=== PATIENT | female | born 1945 | race Caucasian/White ===

== ENCOUNTER 2018-03-10 09:36 | Outpatient (CLI) | payer MEDICARE | END 2018-03-10 09:37 | disposition home or self-care (01) | LOC: BICMAMMO 09:36 | PROVIDERS: ATTEND Specialist | DX: Z13.820 Encounter for screening for osteoporosis (principal); C50.412 Malignant neoplasm of upper-outer quadrant of left female breast; Z78.0 Asymptomatic menopausal state; Z80.3 Family history of malignant neoplasm of breast; Z85.3 Personal history of malignant neoplasm of breast | CPT/HCPCS: 77066; 77080; G0279 ==

== ENCOUNTER 2018-03-18 01:37 | Inpatient (IN) | payer MEDICARE ==
[2018-03-18] MEDS ORDERED: Ondansetron HCl/PF 4 MG/2 ML Vial ONE (02:23)
[2018-03-18 02:29] LABS: Hemoglobin 13.4 g/dL (12.0-16.0); Mean Corpuscular HGB CONC 35.7 g/dL (32.0-36.0); Mean Corpuscular Hemoglobin 36.1 pg (27.0-31.0); Platelet Count 236 thou/uL (130-400); RBC Distribution Width 12.7 % (11.5-14.5); Red Blood Cell (RBC) Count 3.72 mill/uL (4.20-5.40); White Blood Cell (WBC) Count 9.3 thou/uL (4.8-10.8)
[2018-03-18 03:01] LABS: ALT (SGPT) 13 U/L (8-55); AST (SGOT) 21 U/L (5-34); Albumin 3.9 g/dL (3.4-4.8); Alkaline Phosphatase 71 U/L (40-150); Anion Gap 16 mmol/L (10-20); BUN (Urea Nitrogen) 17 mg/dL (9.8-20.1); Bilirubin, Total 0.4 mg/dL (0.2-1.2); Calc. Creatinine Clearance 0 mL/min (70-130); Calcium 10.3 mg/dL (7.8-10.44); Carbon Dioxide 26 mmol/L (23-31); Chloride 102 mmol/L (98-107); Estimated GFR-MDRD 54; Globulin 3.1 g/dL (2.4-3.5); Glucose 133 mg/dL (83-110); Lipase 4 U/L (8-78); Potassium 4.3 mmol/L (3.5-5.1); Sodium 140 mmol/L (136-145)
[2018-03-18 03:07] LABS: Band 1 % (5-11); Lymphocytes 4 % (21-51); MDiff Complete? YES; Monocytes 9 % (0-10); Neutrophil 86 % (42-75); PLT Morphology Comment Appears Adequate; RBC Morphology Normal
[2018-03-18 04:17] LABS: Bilirubin Negative (Negative); Blood, Urine Negative (Negative); Clarity CLEAR (Clear); Glucose, Urine (Dipstick) Negative (Negative); Leukocyte Negative (Negative); Nitrite Negative (Negative); Protein, Urine (Dipstick) Negative (Neg-Trace); Specific Gravity, Urine 1.021 (1.002-1.036); Urobilinogen 0.2 mg/dL (0.2-1.0)
[2018-03-18] MEDS ORDERED: Pantoprazole 40 MG VIAL ONE (04:51)
[2018-03-18] MEDS ORDERED: Morphine 4 MG/ML VIAL ONE (05:19)
[2018-03-18 06:31] VITALS: BMI 32.9
[2018-03-18] MEDS ORDERED: Ondansetron HCl/PF 4 MG/2 ML Vial IVP PRN (06:39)
[2018-03-18] MEDS ORDERED: Ondansetron ODT 4 MG TAB PO PRN (06:39)
--- NOTE | 2018-03-18 07:53 | RAD ---
SINGLE VIEW OF THE LOWER CHEST: HISTORY: NG tube placement. FINDINGS: A single view of the lower chest shows an enlarged cardiomediastinal silhouette. There is an NG tube with its tip in the stomach. There is a nonobstructed bowel gas pattern. No obvious consolidation or pleural effusion are seen. IMPRESSION: Nasogastric tube located in the stomach. POS: CET
--- NOTE | 2018-03-18 08:03 | CT ---
PRELIMINARY REPORT/[facility]/EMERGENTY AFTER-HOURS PROCEDURE CT Abdomen and Pelvis With Intravenous Contrast EXAM DATE/TIME: Exam ordered 03/18/2018 3:41 AM CLINICAL HISTORY: 72 years old, female; Pain; Abdominal pain; Localized; Left; Prior surgery; Patient HX: Er 12; 72 yea r old patient here with concern for sbo. Pt reports eating carrots last night and starting to feel bl oated. Ate oatmeal for breakfast and started feeling backed up. Took mag citrate. Ended up vomiting x 1. Vomitus bilious. Pt reports having luq/llq abdominal pain. Pt had total colectomy in past due to u c. Has j pouch. Pt had sbo in past reports after eating carrots as well. TECHNIQUE: Axial computed tomography images of the abdomen and pelvis with intravenous contrast. Coronal reformatted images were created and reviewed. COMPARISON: No relevant prior studies available. FINDINGS: Lung bases: There is subpleural atelectasis of the dependent portions of the lungs. ABDOMEN: Liver: There are no focal liver lesions identified. Gallbladder and bile ducts: There has been a cholecystectomy. No ductal dilation. Pancreas: The pancreas appears normal. No ductal dilation. Spleen: The spleen is normal. Adrenals: The right adrenal gland is normal.There is a focal hypodense mass in the left adrenal gland , consistent in appearance and density with a benign adrenal adenoma. Kidneys and ureters: Normal. No solid mass. No hydronephrosis. Stomach and bowel: There is dilatation of the small bowel up to 3.4 cm with abrupt collapse in the pe lvis consistent with small bowel obstruction. Stomach is mildly distended. There are surgical clips i n the pelvis compatible with total colectomy. There are fecal contents within the distal small bowel from delayed transit. PELVIS: Appendix: See above. Bladder: Normal. No mass. Reproductive: The uterus is surgically absent. ABDOMEN and PELVIS: Intraperitoneal space: Normal. No free air. No significant fluid collection. Bones/joints: No acute fracture. No dislocation. Soft tissues: Normal. Vasculature: Normal. No abdominal aortic aneurysm. Lymph nodes: Normal. No enlarged lymph nodes. IMPRESSION: There is dilatation of the small bowel up to 3.4 cm with abrupt collapse in the pelvis consistent wit h small bowel obstruction. Thank you for allowing us to participate in the care of your patient. Dictated and Authenticated by: Eleazar Rahman MD 03/18/2018 4:40 AM Central Time ([place] & [place]) FINAL REPORT CT ABDOMEN AND PELVIS WITH ORAL AND IV CONTRAST: 1. I agree with the preliminary report given by Dr. Eleazar Rahman of [facility]. 2. The left adrenal nodule should be evaluated with a CT scan with and without contrast to confirm a denoma. Findings were reported to ER physician, Dr. Holder, at 7:45 a.m. CODE CR POS: OFF
[2018-03-18] MEDS ORDERED: Pantoprazole 40 MG VIAL IVP SCH (09:00)
[2018-03-18] MEDS ORDERED: Prevnar 13-Val Conj/PF 0.5 ML SYRINGE IM ONE (09:00)
[2018-03-18] MEDS: Lactated Ringer's 1,000 ML IV SCH ×4 (09:28→23:42)
[2018-03-18] MEDS: Acetaminophen 1,000 MG in Premix Bag 1 BAG IVPB PRN ×2 (12:08→17:56)
[2018-03-18] MEDS ORDERED: Iopamidol 370 76% 50 ML VIAL FS ONE (13:50)
[2018-03-18] MEDS ORDERED: ISOVUE-370 76%-LOCM 1 ML ONE (13:50)
--- NOTE | 2018-03-18 15:25 | RAD ---
AP ABDOMEN: History: Bowel obstruction. FINDINGS: There is a nasogastric tube in place, distal tip of the NG tube appears to be over the fundus of the stomach. The sideport is at the gastroesophageal junction. The NG tube needs to be advanced approxima tely 10 cm to be in optimum location. Surgical clips seen in the abdomen. Moderate degree of small bowel dilatation seen. Surgical clips seen in the abdomen. IMPRESSION: Small bowel dilatation. NG tube should be advanced approximately 10 cm to be in optimum position. POS: JOSE L
[2018-03-18] MEDS ORDERED: Ondansetron HCl/PF 4 MG/2 ML Vial SLOW IVP PRN (16:54)
--- NOTE | 2018-03-18 21:01 | HP ---
DATE OF ADMISSION: 03/18/2018 ADMITTING PHYSICIAN: Dr. Tala Mo with Dr. Ellington assuming care. HISTORY OF PRESENT ILLNESS: Ms. Herrera is a 72-year-old female who presented to the emergency dep artment last p.m. after eating some carrots and beginning to feel bloated. She then ate oatmeal and reported she subsequently took mag citrate. She vomited x1 per her report. She reports having left lower quadrant abdominal pain. She has history of bowel obstruction. She has had a total colectomy in the past due to ulcerative colitis. She was hemodynamically stable during evaluation. She denied any fever or chills. Denied any urinary symptoms. PAST MEDICAL HISTORY: 1. Breast cancer, left. 2. Hypertension. 3. Multiple bowel obstructions. PAST SURGICAL HISTORY: 1. Colon resection 1990. 2. Hysterectomy. SOCIAL HISTORY: Alcohol, none. Tobacco, none. Drugs, none. CURRENT MEDICATIONS: 1. Venlafaxine extended release 50 mg once a day. 2. Lisinopril 10 mg once a day. 3. Naproxen 500 mg twice daily. 4. Metformin 500 mg 1 tablet with lunch two tablets with supper. 5. Anastrozole 1 mg once a day. 6. Gabapentin 300 mg once daily. 7. Pioglitazone 30 mg once daily. ALLERGIES: 1. DEMEROL. 2. PENICILLIN. LABORATORY DATA: CBC: WBC 9.3, RBC 3.72, hemoglobin 13.4, hematocrit 37.7, platelets 236. Chemistr y: Sodium 140, potassium 4.3, chloride 102, CO2 26, BUN 17, creatinine 1.01, glucose 133. Lactic ac id 1.3, calcium 10.3, total bilirubin 0.4, AST 21, ALT 13, alkaline phosphatase 71, serum total prote in 7.0, albumin 3.9, globulin 3.1, albumin globulin ratio 1.3, lipase 4. DIAGNOSTIC IMAGING: Dilation of the small bowel consistent with small-bowel obstruction as well as l eft adrenal nodule. REVIEW OF SYSTEMS: CONSTITUTIONAL: The patient denies fever, chills, weight loss or generalized mal aise. HEENT: Denies otorrhea, rhinorrhea or neck pain. CARDIOVASCULAR: Denies chest pain, syncope , or palpitations. RESPIRATORY: Denies shortness of breath or wheezing or cough. GASTROINTESTINAL: Reports constipation. Reports nausea, reports vomiting. Reports left lower quadrant pain. GENITO URINARY: Denies hematuria or dysuria. EXTREMITIES: Denies trauma or injury. SKIN: Denies rash or skin changes. PHYSICAL EXAMINATION: VITAL SIGNS: Temperature 98.3, pulse 82, respirations 16, O2 sat 95% on room air, blood pressure 169 /77. CONSTITUTIONAL: Well-nourished, well-developed female lying in bed in no acute distress. HEENT: Atraumatic, normocephalic. RESPIRATORY: Bilateral breath sounds clear. No respiratory distress. CARDIOVASCULAR: Regular rate and rhythm. ABDOMEN: Soft, tender to palpation in left lower quadrant. No masses. Old healed midline surgical incision. EXTREMITIES: Moves all extremities. Cap refill brisk in all extremities. NEUROLOGIC: GCS 15. Awake, alert, oriented x3. ASSESSMENT AND PLAN: 1. A 72-year-old female with bowel obstruction. 2. History of ulcerative colitis, necessitating colectomy. 3. History of bowel obstruction x3. 4. Left adrenal nodule incidentally noted on CT scan. PLAN: 1. Continue n.p.o. 2. Continue NG tube. 3. Plan for small bowel follow through today. 4. Adrenal nodule workup as an outpatient. The patient was seen and examined with Dr. Ellington, who agrees with plan.
--- NOTE | 2018-03-18 22:06 | RAD ---
SMALL BOWEL FOLLOW THROUGH: INDICATIONS: Obstruction. FINDINGS: Radiographic imaging for eight hours performed, subsequent to enteric contrast administration. At th e eight-hour image, there is persistent marked distention of contrast opacified small bowel and promi nent distention of the gastric lumen, compatible with a high grade mechanical obstruction. IMPRESSION: Mechanical bowel obstruction with persistent abnormal contrast opacified and distended small bowel at the eight-hour imaging portion of the examination. POS: JOSE L
[2018-03-19] MEDS: Acetaminophen 1,000 MG in Premix Bag 1 BAG IVPB PRN (05:10)
[2018-03-19 08:28] LABS: #Monocytes 0.7 thou/uL (0.11-0.59); #Neutrophils 5.4 thou/uL (1.40-6.50); %Basophils 0.2 % (0.0-1.0); %Eosinophils 0.5 % (0.0-10.0); %Lymphocytes 14.5 % (21.0-51.0); %Monocytes 9.5 % (0.0-10.0); %Neutrophils 75.2 % (42.0-75.0); Hemoglobin 12.6 g/dL (12.0-16.0); Mean Corpuscular HGB CONC 33.6 g/dL (32.0-36.0); Mean Corpuscular Hemoglobin 34.8 pg (27.0-31.0); Mean Platelet Volume 6.8 fL (7.4-10.4); Platelet Count 212 thou/uL (130-400); RBC Distribution Width 12.7 % (11.5-14.5); Red Blood Cell (RBC) Count 3.63 mill/uL (4.20-5.40); White Blood Cell (WBC) Count 7.2 thou/uL (4.8-10.8)
[2018-03-19 08:54] LABS: Anion Gap 16 mmol/L (10-20); BUN (Urea Nitrogen) 19 mg/dL (9.8-20.1); Calc. Creatinine Clearance 67 mL/min (70-130); Calcium 9.3 mg/dL (7.8-10.44); Carbon Dioxide 29 mmol/L (23-31); Chloride 103 mmol/L (98-107); Estimated GFR-MDRD 52; Glucose 183 mg/dL (83-110); Phosphorus 4.1 mg/dL (2.3-4.7); Potassium 3.8 mmol/L (3.5-5.1); Sodium 144 mmol/L (136-145)
[2018-03-19] MEDS: Lactated Ringer's 1,000 ML IV SCH (18:43)
[2018-03-20 15:17] VITALS: BP 160/95; TEMP 98.7
== END 2018-03-20 15:24 | disposition home or self-care (01) | DRG 390 ==
LOC: ERS 01:37 → T4-B 06:05
PROVIDERS: ADMIT Surgery; ATTEND Surgery
PROC: 0D9670Z Drainage of Stomach with Drainage Device, Via Natural or Artificial Opening (ICD-10-PCS; principal; 2018-03-18)
DX: K56.609 Unspecified intestinal obstruction, unspecified as to partial versus complete obstruction (principal); Z90.49 Acquired absence of other specified parts of digestive tract; I10 Essential (primary) hypertension; Z88.5 Allergy status to narcotic agent; Z88.0 Allergy status to penicillin
CPT/HCPCS: 36415; 71045; 74018; 74177; 74250; 80048; 80053; 81003; 83605; 83690; 83735; 84100; 85025; 90471; 90670; 93005; 96361; 96374; 96375; A4216; C9113; G0009; J0131; J2270; J2405

== ENCOUNTER 2019-06-01 13:56 | Outpatient (CLI) | payer MEDICARE ==
--- NOTE | 2019-06-01 14:53 | MMO ---
Bilateral MAMMO Bilat Diag DDI+AD. CLINICAL HISTORY: Patient is 73 years old and is seen for diagnostic exam. The patient has the following family history of breast cancer: mother, malignant (generic). The patient has a history of lumpectomy procedure revealed invasive ductal left breast carcinoma in March, and Ultrasound guided core biopsy procedure revealed invasive ductal left breast carcinoma in February,. VIEWS: The views performed were: bilateral craniocaudal with tomosynthesis; bilateral mediolateral oblique with tomosynthesis; and bilateral mediolateral with tomosynthesis. FILMS COMPARED: The present examination has been compared to prior imaging studies performed at [facility] on 01/18/2017, 01/29/2017 and 03/10/2018. This study has been interpreted with the assistance of computer-aided detection. MAMMOGRAM FINDINGS: There are scattered fibroglandular densities. There is a stable post-surgical scar seen in the upper-outer region of the left breast. There are no suspicious masses, suspicious calcifications, or new areas of architectural distortion. IMPRESSION: THERE IS NO MAMMOGRAPHIC EVIDENCE OF MALIGNANCY. A ROUTINE FOLLOW-UP MAMMOGRAM IN 1 YEAR IS RECOMMENDED. THE RESULTS OF THIS EXAM WERE SENT TO THE PATIENT. ACR BI-RADS Category 2 - Benign finding MAMMOGRAPHY NOTE: 1. A negative mammogram report should not delay a biopsy if a dominant of clinically suspicious mass is present. 2. Approximately 10% to 15% of breast cancers are not detected by mammography. 3. Adenosis and dense breasts may obscure an underlying neoplasm. Reported by: FLOR HOFFMAN MD Electonically Signed: [id number]
== END 2019-06-01 13:57 | disposition home or self-care (01) ==
LOC: BICMAMMO 13:56
PROVIDERS: ATTEND Family Medicine
DX: C50.912 Malignant neoplasm of unspecified site of left female breast (principal)
CPT/HCPCS: 77066; G0279

== ENCOUNTER 2019-07-08 13:44 | Outpatient (CLI) | payer MEDICARE ==
--- NOTE | 2019-07-08 16:48 | MRI ---
EXAM: RIGHT SHOULDER MRI WITHOUT IV CONTRAST: 07/08/19 HISTORY: Acute pain right shoulder. FINDINGS: Multiplanar and multisequence MRI examination of the right shoulder is performed. AC joint arthrosis with subchondral cystic changes of the distal clavicle as well as some downsloping of the anterior ac romion and lateral acromion with minimal fluid and fat stranding in the subacromial subdeltoid bursa. Mid grade partial thickness undersurface tear of the supraspinatus tendon at the level of the magic angle without complete full thickness tear or retraction. The infraspinatus tendon and subscapularis tendon and biceps tendons appear intact. There is abnormal signal associated with the inferior labrum primarily extending anteriorly. No acute osteochondral defect. No significant abnormal marrow signal . IMPRESSION: AC joint arthrosis. Mid grade undersurface tear of the supraspinatus tendon at the level of the magic angle. Abnormal signal associated with the superior labrum extending anteriorly evidence for SLAP te ar. POS: TPC
== END 2019-07-08 13:45 | disposition home or self-care (01) ==
LOC: SCSMRI 13:44
PROVIDERS: ATTEND Orthopaedic Surgery
DX: M25.511 Pain in right shoulder (principal); M19.011 Primary osteoarthritis, right shoulder; S43.431A Superior glenoid labrum lesion of right shoulder, initial encounter; R93.7 Abnormal findings on diagnostic imaging of other parts of musculoskeletal system; M75.101 Unspecified rotator cuff tear or rupture of right shoulder, not specified as traumatic

== ENCOUNTER 2019-09-28 10:28 | Outpatient (CLI) | payer MEDICARE ==
--- NOTE | 2019-09-28 13:59 | MRI ---
MR of the right wrist without IV contrast TECHNIQUE: September 28, 2019 HISTORY: Right wrist pain after fall in August 2019 COMPARISON: None FINDINGS: Motion artifact degrades image detail. Bones: No abnormal marrow signal intensity is present. There is no evidence of fracture. Ligaments: The scapholunate and lunotriquetral ligaments appear intact. The extrinsic ligaments appea r intact. Cartilage: Articular cartilage appears normal. Triangular fibrocartilage complex: There is a small 4 mm central perforation involving the triangular fibrocartilage. The remainder of the TFCC appears within normal limits. Tendons: There is mild tendinosis of the ECU tendon at the level of the ulnar styloid process. There is fluid signal intensity surrounding the abductor pollicis longus and extensor pollicis brevis tendons. There is a partial-thickness split tear involving the abductor pollicis longus tendon at the level of the mid carpal joint on image 12 of series 4. Small amount of fluid distention is seen involving the FDS and FDP tendons distal, at and slightly proximal to the transverse retinaculum cons istent with changes of some mild flexor tenosynovitis. Median nerve: There is slight prominence of the median nerve is increased T2 signal just proximal to the transverse carpal band best seen on image 15 of series 4. Visualized musculature: Appears within normal limits. Other findings: None IMPRESSION: 1. Findings most consistent with de Quervain's tenosynovitis with a partial-thickness tear involving the abductor pollicis longus tendon at the level of the mid carpal joint. 2. Mild flexor tenosynovitis involving the FDS and FDP tendons of the carpal tunnel. There is also sl ight prominence of the median nerve, just proximal to the transverse retinaculum, suspicious for a median neuritis. Recommend correlation with the clinical exam for for carpal tunnel syndrome. 3. Small central perforation of the TFC. 4. Mild ECU tendinosis
== END 2019-09-28 10:29 | disposition home or self-care (01) ==
LOC: SCSMRI 10:28
PROVIDERS: ATTEND Orthopaedic Surgery
DX: M25.531 Pain in right wrist (principal); M65.831 Other synovitis and tenosynovitis, right forearm; M94.8X3 Other specified disorders of cartilage, forearm; M67.833 Other specified disorders of tendon, right wrist; S66.911A Strain of unspecified muscle, fascia and tendon at wrist and hand level, right hand, initial encounter

== ENCOUNTER 2019-10-04 01:14 | Inpatient (IN) | payer MEDICARE ==
[2019-10-04 01:51] LABS: #Eosinphils 0.1 thou/uL (0.0-0.7); #Lymphocytes 0.9 thou/uL (1.20-3.40); #Monocytes 0.7 thou/uL (0.11-0.59); #Neutrophils 6.8 thou/uL (1.40-6.50); %Basophils 0.4 % (0.0-1.0); %Eosinophils 1.2 % (0.0-10.0); %Lymphocytes 10.7 % (21.0-51.0); %Monocytes 8.1 % (0.0-10.0); %Neutrophils 79.5 % (42.0-75.0); Hemoglobin 12.4 g/dL (12.0-16.0); Mean Corpuscular HGB CONC 33.2 g/dL (32.0-36.0); Mean Corpuscular Hemoglobin 34.1 pg (27.0-31.0); Mean Platelet Volume 6.8 fL (7.4-10.4); Platelet Count 235 thou/uL (130-400); RBC Distribution Width 12.2 % (11.5-14.5); Red Blood Cell (RBC) Count 3.63 mill/uL (4.20-5.40); White Blood Cell (WBC) Count 8.5 thou/uL (4.8-10.8)
[2019-10-04] MEDS ORDERED: Morphine 4 MG/ML VIAL ONE (02:05)
[2019-10-04] MEDS ORDERED: Ondansetron PF 4 MG/2 ML Vial ONE (02:05)
[2019-10-04 02:09] LABS: ALT (SGPT) 9 U/L (8-55); AST (SGOT) 14 U/L (5-34); Albumin 3.9 g/dL (3.4-4.8); Alkaline Phosphatase 73 U/L (40-110); Anion Gap 14 mmol/L (10-20); BUN (Urea Nitrogen) 20 mg/dL (9.8-20.1); Bilirubin, Total 0.4 mg/dL (0.2-1.2); Calc. Creatinine Clearance 0 mL/min (70-130); Calcium 9.8 mg/dL (7.8-10.44); Carbon Dioxide 28 mmol/L (23-31); Chloride 102 mmol/L (98-107); Estimated GFR-MDRD 54; Globulin 2.9 g/dL (2.4-3.5); Glucose 230 mg/dL (83-110); Lipase 14 U/L (8-78); Potassium 4.5 mmol/L (3.5-5.1); Protein, Total 6.8 g/dL (6.0-8.3); Sodium 139 mmol/L (136-145)
[2019-10-04 02:29] LABS: Bilirubin Negative (Negative); Blood, Urine Trace (Negative); Clarity Clear (Clear); Glucose, Urine (Dipstick) 300 mg/dL (Negative); Leukocyte 25 Leu/uL (Negative); Nitrite Negative (Negative); Protein, Urine (Dipstick) 50 mg/dL (Neg-Trace); Urobilinogen Normal mg/dL (Less than 2)
[2019-10-04 02:31] LABS: Bacteria/HPF 1+ HPF (None Seen)
[2019-10-04] MEDS ORDERED: Benzocaine 20% Spray 60 ML CAN ONE (02:52)
--- NOTE | 2019-10-04 03:01 | PDOC.FPRHP ---
- History of Present Illness Chief Complaint: abd pain History of Present Illness: 74 y/o f with a pmhx of multiple abd surgeries, UC, HTN, and DM II presents to the ED with abdominal pain and bloating that started Saturday at lunch. Pt states she thought she had gas after eating lunch too quickly, but then noticed this is how her previous 5 SBO's presented early on. She states this prompted her to perform a fleet enema, which did not alleviate the bloating, but did clear out the remainder of her bowel. She c/o LLQ abd pain. states there was slight blood streaking in enema BM. Denies dysuria or hematuria. ED course: Gen surg Tristen was consulted, recommended NG tube placement and IVF's. Will see pt in AM. given morphine for pain control and 1 L IV NS. - Allergies/Adverse Reactions Allergies Allergy/AdvReac Type Severity Reaction Status Date / Time meperidine HCl [From Demerol] Allergy Intermediate Anxiety Verified 10/04/19 10: 24 Penicillins Allergy Intermediate Rash Verified 10/04/19 10:24 - Home Medications Medication Instructions Recorded Confirmed Type Anastrozole 1 mg PO DAILY 03/18/18 10/04/19 History Desvenlafaxine Succinate [Pristiq] 50 mg PO DAILY 03/18/18 10/04/19 History Gabapentin 300 mg PO HS 03/18/18 10/04/19 History Insulin Glargine,Hum.Rec.Anlog 20 units SQ 03/18/18 10/04/19 History [Lantus] Lisinopril 10 mg PO DAILY 03/18/18 10/04/19 History Naproxen 500 mg PO BID 03/18/18 10/04/19 History metFORMIN [Glucophage] 1,000 mg PO DAILY 03/18/18 10/04/19 History metFORMIN [Glucophage] 500 mg PO BID 03/18/18 10/04/19 History Acitretin 10 mg PO DAILY 10/04/19 10/04/19 History Fluticasone Propionate [Flovent 2 spray IH HS 10/04/19 10/04/19 History Diskus] Pioglitazone HCl 45 mg PO DAILY 10/04/19 10/04/19 History - History PMHx: X5 SBO's in 29 years. UC s/p total colectomy with J pouch, HTN, DM II, diabetic retinopathy, hx of breast CA PSHx: tummy tuck, cholecystectomy, hysterectomy, total colectomy with J pouch FHx: Mother: breast CA, Father: aneurysm, Brother: prostates CA Social: Denies tobacco, etoh, or drug use. - Review of Systems General: denies: fever/chills, weight/appetite/sleep changes Eyes: denies: eye pain, vision changes ENT: denies: nasal congestion Respiratory: denies: cough, congestion, shortness of breath Cardiovascular: denies: chest pain, palpitation, edema Gastrointestinal: reports: nausea, vomiting, abdominal pain, other (bloating). denies: diarrhea Genitourinary: denies: dysuria, polyuria Skin: denies: rashes, lesions Musculoskeletal: denies: tenderness, stiffness Neurological: denies: numbness, syncope, seizure, weakness - Vital signs BP: 192/85 HR: 82 RR: 14 Tmax: 98.5 Pox: 94% on ra Wt: 79.4 kg - Physical Exam Constitutional: NAD, awake, alert and oriented, well developed HEENT: normocephalic and atraumatic, PERRLA, EOMI, conjunctiva clear, no scleral icterus, grossly normal vision, grossly normal hearing, MMM, oropharynx clear, good dention Neck: supple, FROM, trachea midline, no LAD Chest: no-tender to palpation Heart: RRR, pulses present, no edema, other (2/6 sys murmur) Lungs: CTAB, no respiratory distress, good air movement, no rales/rhonchi, no wheezing, no retractions Abdomen: bowel sounds present (yperactive and high pitched) -Abdomen: LLQ tenderness to palpation. Musculoskeletal: normal structure, normal tone, ROM grossly normal Neurological: no focal deficit, CN II-XII intact, normal sensation Skin: no rash/lesions, good turgor, capillary refill <2 seconds Heme/Lymphatic: no unusual bruising or bleeding, no purpura, no petechia Psychiatric: normal mood and affect, good judgment and insight, intact recent and remote memory FMR H&P: Results - Labs Result Diagrams: 10/04/19 01:43 10/04/19 01:43 Lab results: WBC 8.5 thou/uL (4.8-10.8) 10/04/19 01:43 Hgb 12.4 g/dL (12.0-16.0) 10/04/19 01:43 Hct 37.3 % (36.0-47.0) 10/04/19 01:43 MCV 103.0 fL (78.0-98.0) H 10/04/19 01:43 Plt Count 235 thou/uL (130-400) 10/04/19 01:43 Neutrophils % 79.5 % (42.0-75.0) H 10/04/19 01:43 Sodium 139 mmol/L (136-145) 10/04/19 01:43 Potassium 4.5 mmol/L (3.5-5.1) 10/04/19 01:43 Chloride 102 mmol/L (98-107) 10/04/19 01:43 Carbon Dioxide 28 mmol/L (23-31) 10/04/19 01:43 BUN 20 mg/dL (9.8-20.1) 10/04/19 01:43 Creatinine 1.01 mg/dL (0.6-1.1) 10/04/19 01:43 Glucose 230 mg/dL (83-110) H 10/04/19 01:43 Calcium 9.8 mg/dL (7.8-10.44) 10/04/19 01:43 Total Bilirubin 0.4 mg/dL (0.2-1.2) 10/04/19 01:43 AST 14 U/L (5-34) 10/04/19 01:43 ALT 9 U/L (8-55) 10/04/19 01:43 Alkaline Phosphatase 73 U/L (40-110) 10/04/19 01:43 Serum Total Protein 6.8 g/dL (6.0-8.3) 10/04/19 01:43 Albumin 3.9 g/dL (3.4-4.8) 10/04/19 01:43 Lipase 14 U/L (8-78) 10/04/19 01:43 Urine Ketones Trace mg/dL (Negative) A 10/04/19 02:15 Urine Blood Trace (Negative) A 10/04/19 02:15 Urine Nitrite Negative (Negative) 10/04/19 02:15 Ur Leukocyte Esterase 25 Kosta/uL (Negative) 10/04/19 02:15 Urine RBC 7-10 HPF (0-3) A 10/04/19 02:15 Urine WBC 4-6 HPF (0-3) A 10/04/19 02:15 Ur Squamous Epith Cells 11-20 HPF (0-3) A 10/04/19 02:15 Urine Bacteria 1+ HPF (None Seen) A 10/04/19 02:15 - Radiology Interpretation CT scan - abdomen Status: image reviewed by me (SBO) FMR H&P: A/P - Problem List (1) SBO (small bowel obstruction) Current Visit: Yes Status: Acute Code(s): K56.609 - UNSP INTESTNL OBST, UNSP TO PARTIAL VERSUS COMPLETE OBST (2) DM II (diabetes mellitus, type II), controlled Current Visit: Yes Status: Acute Code(s): E11.9 - TYPE 2 DIABETES MELLITUS WITHOUT COMPLICATIONS (3) HTN (hypertension) Current Visit: Yes Status: Acute Code(s): I10 - ESSENTIAL (PRIMARY) HYPERTENSION (4) Hx of breast cancer Current Visit: Yes Status: Acute Code(s): Z85.3 - PERSONAL HISTORY OF MALIGNANT NEOPLASM OF BREAST - Plan 74 y/o F with a pmhx of multiple abdominal sx admitted for SBO 1. SBO - Gen surger, Dr. Ramon consulted from ED. Recommends NG tube placement, and IVF 's. Will evaluation pt this AM. Appreciate recommendations. - NPO, holding PO medications currently. - Pt hs hx of hysterectomy, cholcystectomy and colectomy with J pouch. - Previously had X5 SBO's which are usually alleviated with small bowel follow through studies. 2. Hx of Ulcerative Colitis requiring total colectomy with J Pouch. - Pt does not have UC symptoms anymore since colectomy. 3. Hx of DM II - diabetic retinopathy - Holding PO medications while NPO. - AC/HS accuchecks, SSI 4. Hx of HTN - hold PO lisinopril - PRN hydralazine for BP management while NPO 5. Hx of breast CA - aware Code status: Full code Diet: NPO DVT ppx: SCD's Dispo: stable, admit to inpt >2 hospital midnights. Consult gen surg for recommendations on SBO management. FMR H&P: Upper Level - Plan Date/Time: 10/04/19 0301 I, Andi Giordano MD, have evaluated this patient and agree with findings/ plan as outlined by product management intern resident. Pertinent changes/additions are listed here. 1. SBO - Hx of multiple SBOs and CT findings - NPO - General Surgery consulted in ED recommended placement of NG tube - Likely will need small bowel follow through 2. Hx of Colectomy - Contributing to above All other chronic conditions reviewed and medications to be restarted as appropriate. CODE STATUS: FULL CODE PCP: Dr. Castillo Disposition: Stable, will admit to inpatient surgical floor for further evaluation and management. Addendum - Attending - Attending Attestation Date/Time: 10/04/19 1044 I personally evaluated the patient and discussed the management with Dr. Wakefield/ Giuliana I agree with the History, Examination, Assessment and Plan documented above with any addition or exceptions noted below. 74 yo s/p colectomy with J pouch 1980 for Ulcerative Colitis. Recurrent admits with SBO none requiring operative intervention thus far. Hx hysterectomy 1990, cholecystetomy 2017 , left breast lumpectomy 2017 and f/u chemo and XRT for breast CA. Patient currently feeling better s/p emesis and NGT insertion she is currently pain free. continue IV hydration Watch electrolytes and pending surgical opinion further recommendations.
[2019-10-04] MEDS ORDERED: Dextrose 5% in Water 1,000 ML IV PRN (03:33)
[2019-10-04] MEDS ORDERED: Morphine 4 MG/ML VIAL IV PRN (06:17)
[2019-10-04] MEDS: Lactated Ringer's 1,000 ML IV SCH ×3 (07:30→20:33)
--- NOTE | 2019-10-04 08:37 | CT ---
PRELIMINARY REPORT/[facility]/EMERGENCY AFTER HOURS PROCEDURE: EXAM: CT Abdomen and Pelvis with Intravenous Contrast CLINICAL HISTORY: PT STATES SHE THINKS SHE HAS AN INTESTINAL BLOCKAGE BECAUSE SHE HAS HAD ONE BEFORE AND IS HAVING CASIMIRO LAR SYMPTOMS. PT C/O R SIDED ABD TENDERNESS AND BEING BLOATED. TECHNIQUE: Axial computed tomography images of the abdomen and pelvis with intravenous contrast. CONTRAST: With; ISOVUE 370,100mL COMPARISON: None provided. FINDINGS: LUNG BASES: No basilar airspace consolidation or pleural effusion. LIVER: Unremarkable. GALLBLADDER AND BILE DUCTS: Surgically absent. No ductal dilation. PANCREAS: Unremarkable. SPLEEN: Unremarkable. ADRENAL GLANDS: Unremarkable. KIDNEYS, URETERS, AND BLADDER: Unremarkable. No hydronephrosis or nephrolithiasis. No ureteral or itz dder calculi. STOMACH AND BOWEL: Multiple dilated fluid-filled loops of small bowel with transition point noted in the vicinity of the small bowel anastomosis. Postsurgical changes related to total colectomy. APPENDIX: No CT evidence for appendicitis. PERITONEUM: No free fluid. No free air. LYMPH NODES: No lymphadenopathy. REPRODUCTIVE: Unremarkable as visualized. VASCULATURE: No aortic aneurysm. BONES: No fracture or suspicious osseous abnormality. Degenerative changes of the spine. ABDOMINAL WALL AND SOFT TISSUES: Unremarkable. IMPRESSION: Postsurgical changes related to total colectomy with adhesions likely causing partial high-grade obst ruction of the small bowel loops proximal to the anastomosis. ELECTRONICALLY SIGNED BY: Randall Ac DO Oct 04, 2019 2:29:11 AM [employer] This report is intended for review by the ordering physician only, in accordance of law. If you recei ve this report in error, please call [facility] at [phone]. FINAL REPORT CT ABDOMEN AND PELVIS: There are fluid-filled dilated loops of small bowel involving proximal and mid small bowel. The dista l small bowel loops are decompressed. Findings indicate a relatively high grade mid small bowel obstr uction. I am in agreement with the preliminary report issued by [facility]. POS: [facility]
[2019-10-04] MEDS: Ondansetron PF 4 MG/2 ML Vial IVP PRN (08:40)
--- NOTE | 2019-10-04 09:11 | RAD ---
PORTABLE CHEST: Date: 10/04/2019 HISTORY: Abdominal pain. FINDINGS/IMPRESSION: Lungs appear clear of infiltrate. Heart and mediastinum unremarkable. A NG tube is noted in place with the line passing through the EG junction. The tip is not visualized. POS: [facility]
[2019-10-04 10:34] VITALS: BMI 30.3
--- NOTE | 2019-10-04 11:44 | CON ---
DATE OF CONSULTATION: CHIEF COMPLAINT: Nausea, vomiting, abdominal distention and pain. HISTORY OF PRESENT ILLNESS: The patient is a 74-year-old female, who has had a previous small-bowel obstruction in 2018, who said that she ate a large salad Saturday night and then when she ate some pasta on Saturday she developed nausea, vomiting, and abdominal pain. She has had multiple surgeries including a total proctocolectomy for ulcerative colitis. She has had a hysterectomy and a laparoscopic cholecystectomy. Her last bowel movement she had this morning at 8:30. The pain is worse on the left side. No flatus. Last bowel obstruction was in March of 2018. PAST MEDICAL HISTORY: Diabetes, hypertension, retinopathy, torn rotator cuff, breast cancer, ulcerative colitis. PAST SURGICAL HISTORY: Abdominoplasty in 2014, laparoscopic cholecystectomy in 2017, colon resection in [place], hysterectomy. She had a left lumpectomy by Dr. Puente in 2016. MEDICATIONS: 1. Flovent. 2. Glucophage. 3. Naprosyn. 4. Lantus. 5. Gabapentin. 6. Pristiq. 7. Anastrozole. 8. Lisinopril. ALLERGIES: SHE HAS AN ALLERGY TO PENICILLIN AND DEMEROL. SOCIAL HISTORY: She is . 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 No tobacco or alcohol. FAMILY HISTORY: Family history of breast cancer. PHYSICAL EXAMINATION: VITAL SIGNS: Temperature 97.8, pulse 77, and blood pressure 162/81. GENERAL: She is awake, alert, in minimal distress. HEENT: She has NG in place. LUNGS: Clear. HEART: Regular rate and rhythm. ABDOMEN: She has an abdominoplasty, so it is somewhat tight. There is minimal tenderness. No peritoneal signs. Multiple well-healed surgical scars. LABORATORY DATA: White count 8.5, hemoglobin and hematocrit of 12 and 37, platelet count 235. Electrolytes; elevated glucose 230. DIAGNOSTIC DATA: CT scan shows partial high-grade small bowel obstruction in the mid small bowel. ASSESSMENT: Partial small bowel obstruction. PLAN: Continue IV hydration, NG suction, serial KUB. Job ID: [id number]
[2019-10-04] MEDS ORDERED: Heparin 1,000 UNITS/ML VIAL ONE (12:44)
[2019-10-04] MEDS ORDERED: Iopamidol-370 76% 500 ML 1 ML ONE (13:13)
[2019-10-04] MEDS: Ketorolac Tromethamine 30 MG/ML VIAL IVP PRN (17:34)
[2019-10-04] MEDS ORDERED: Morphine 2 MG/ML SYRINGE SLOW IVP SCH (21:00)
--- NOTE | 2019-10-05 05:38 | PDOC.FM ---
- Subjective Subjective: Patient doing okay this morning. Reports of continued abdominal pain. Reports of one small BM yesterday. Cannot recall if she has been passing flatus. Reports that she feels achy this morning, attributes it to sleeping in the hospital bed. - Objective Vital Signs & Weight: Vital Signs (12 hours) Temp Pulse Resp BP Pulse Ox 10/05/19 03:59 98.7 F 81 16 151/76 H 95 10/05/19 00:05 98.5 F 95 16 176/80 H 95 10/04/19 20:11 97 10/04/19 20:00 98.1 F 68 16 149/80 H 97 Weight Weight 80.24 kg I&O: 10/03/19 10/04/19 10/05/19 06:59 06:59 06:59 Intake Total 1470 Output Total 550 Balance 920 Result Diagrams: 10/04/19 01:43 10/04/19 01:43 Phys Exam - Physical Examination Constitutional: NAD HEENT: moist MMs, sclera anicteric Neck: supple, full ROM Respiratory: no wheezing, clear to auscultation bilateral Cardiovascular: RRR holosystolic murmur Gastrointestinal: soft, positive bowel sounds ttp LLQ Musculoskeletal: no edema, pulses present Neurological: non-focal, moves all 4 limbs Lymphatic: no nodes Psychiatric: normal affect, A&O x 3 Skin: no rash, normal turgor Dx/Plan (1) DM II (diabetes mellitus, type II), controlled Code(s): E11.9 - TYPE 2 DIABETES MELLITUS WITHOUT COMPLICATIONS Status: Chronic (2) HTN (hypertension) Code(s): I10 - ESSENTIAL (PRIMARY) HYPERTENSION Status: Chronic (3) Hx of breast cancer Code(s): Z85.3 - PERSONAL HISTORY OF MALIGNANT NEOPLASM OF BREAST Status: Chronic (4) SBO (small bowel obstruction) Code(s): K56.609 - UNSP INTESTNL OBST, UNSP TO PARTIAL VERSUS COMPLETE OBST Status: Acute - Plan Plan: 74 y/o F with a pmhx of DM2, HTN, multiple abdominal sx admitted for SBO #SBO - Gen surgery, Dr. Ramon consulted from ED. Recommended NG tube placement, IVF's , and serial KUBs. Appreciate recs -KUB this am: mild-moderate partial SBO, gastric catheter in place - NPO, holding PO medications currently. - Pt hs hx of hysterectomy, cholcystectomy and colectomy with J pouch. - Previously had X5 SBO's which are usually alleviated with small bowel follow through studies. #Hx of Ulcerative Colitis requiring total colectomy with J Pouch. - Pt does not have UC symptoms anymore since colectomy. #Hx of DM II - diabetic retinopathy - Holding PO medications while NPO. - AC/HS accuchecks, SSI #Hx of HTN - holding PO lisinopril - PRN hydralazine for BP management while NPO #Hx of breast CA - aware Code status: Full code Diet: NPO DVT ppx: SCD's Dispo: stable, admitted to inpt for partial SBO. Gen surg, Dr. Ramon, consulted , appreciate recs. Continue hg tube, IVF, serial KUBs.
[2019-10-05] MEDS: Lactated Ringer's 1,000 ML IV SCH ×3 (06:37→21:40)
--- NOTE | 2019-10-05 07:52 | RAD ---
KUB: INDICATION: History of small bowel obstruction. COMPARISON: Prior exam dated 03/18/2018. FINDINGS: Mild to moderate partial small bowel obstruction persists within the central abdomen compared to a CT examination of 10/04/2019. Surgical clips within the abdomen are stable-appearing. Gastric catheter is now seen within the region of the gastric body. Residual contrast is seen within the renal collec ting systems. Osseous structures are similar-appearing. IMPRESSION: 1. Mild to moderate partial small bowel obstruction. 2. Gastric catheter. POS: BH
[2019-10-05] MEDS ORDERED: Sodium Chloride 0.9% 500 ML IV SCH (09:00)
[2019-10-05] MEDS: Ketorolac Tromethamine 30 MG/ML VIAL IVP PRN ×2 (09:12→15:49)
[2019-10-05] MEDS ORDERED: Rocuronium Bromide 10 MG/ML (10ML VIAL) ONE (09:21)
[2019-10-05] MEDS ORDERED: Ondansetron PF 4 MG/2 ML Vial ONE (09:21)
[2019-10-05] MEDS ORDERED: PROPOFOL 200 MG/20 ML VIAL ONE (09:21)
[2019-10-05] MEDS ORDERED: Glycopyrrolate 0.2 MG/ML 5 ML SYRINGE ONE (09:21)
[2019-10-05] MEDS ORDERED: Succinylcholine Chloride 20 MG/ML 10 ml SYRINGE FS ONE (09:21)
[2019-10-05] MEDS ORDERED: diphenhydrAMINE 50 MG/ML VIAL ONE (09:21)
[2019-10-05] MEDS ORDERED: Metoclopramide HCl 10 MG/2 ML VIAL ONE (09:21)
--- NOTE | 2019-10-05 09:25 | PRG ---
DATE OF SERVICE: 10/05/2019 SUBJECTIVE: The patient still has not passed any gas out her bottom. She says her pain is about the same, really not much better, not much worse. OBJECTIVE: Temperature 98.9, pulse 76, blood pressure 160/77. She had 950 out on her NG tube. ASSESSMENT: Small-bowel obstruction. PLAN: Small-bowel follow-through, fluid bolus. Job ID: [id number]
[2019-10-05 09:27] LABS: #Eosinphils 0.1 thou/uL (0.0-0.7); #Lymphocytes 1.1 thou/uL (1.20-3.40); #Monocytes 0.7 thou/uL (0.11-0.59); #Neutrophils 4.6 thou/uL (1.40-6.50); %Basophils 0.3 % (0.0-1.0); %Eosinophils 1.9 % (0.0-10.0); %Monocytes 10.5 % (0.0-10.0); %Neutrophils 70.3 % (42.0-75.0); Hemoglobin 11.5 g/dL (12.0-16.0); Mean Corpuscular HGB CONC 34.1 g/dL (32.0-36.0); Mean Corpuscular Hemoglobin 35.4 pg (27.0-31.0); Mean Platelet Volume 7.1 fL (7.4-10.4); Platelet Count 209 thou/uL (130-400); RBC Distribution Width 12.2 % (11.5-14.5); Red Blood Cell (RBC) Count 3.26 mill/uL (4.20-5.40); White Blood Cell (WBC) Count 6.6 thou/uL (4.8-10.8)
[2019-10-05] MEDS ORDERED: Morphine 2 MG/ML SYRINGE SLOW IVP PRN (09:58)
[2019-10-05] MEDS ORDERED: Morphine 4 MG/ML VIAL SLOW IVP PRN (09:59)
--- NOTE | 2019-10-05 12:38 | PRG ---
DATE OF SERVICE: 10/05/2019 Ms. Herrera is a pleasant 74-year-old lady who was admitted with small-bowel obstruction. She has had several of these in the past related to previous surgeries. She is currently on fluids and NG suctioning, and has been seen in consultation by the Surgery Service, who agrees with this management. Her belly today is less distended than yesterday. 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 She still has not passed any gas or stool. Surgery recommends we proceed with a fluid bolus and small-bowel follow-through. Job ID: [id number]
[2019-10-05] MEDS: Ondansetron PF 4 MG/2 ML Vial IVP PRN (13:45)
[2019-10-05] MEDS ORDERED: MD-Gastroview 120 ML BOT ONE (14:50)
--- NOTE | 2019-10-05 16:52 | RAD ---
Exam: Small bowel series: HISTORY: Small bowel obstruction COMPARISON: 03/18/2018 Assistant Therapy Aide film demonstrates an NG tube in place. Contrast media, Gastrografin, was injected through the N G tube. Imaging was performed without to 3 hours. Following this image the patient was apparently taken to [facility]. Extensive postsurgical changes in the pelvis, there is a history of prior colectomy. There is a focal area of extensive solid fecal material evidence for fecalization within a dilated small bowel loop. There are some nondilated small bowel loops distal to this area of fecalization. IMPRESSION: Evidence for high-grade obstruction secondary to a focally dilated loop of small bowel with extensive focal fecalization. The patient was taken to surgery after the 3 hour study.
[2019-10-05] MEDS ORDERED: Levofloxacin 500 mg/D5W 100 ml Premix Bag ONE (16:59)
[2019-10-05] MEDS ORDERED: Famotidine/PF 20 mg/2ml Vial ONE (17:34)
[2019-10-05] MEDS ORDERED: Fentanyl 100 MCG/2 ML VIAL ONE ×3 (17:52→22:39)
[2019-10-05] MEDS ORDERED: Promethazine HCl 25 MG/ML VIAL IM PRN ×2 (22:13→22:32)
[2019-10-05] MEDS ORDERED: Ondansetron PF 4 MG/2 ML Vial IVP PRN (22:13)
[2019-10-05] MEDS ORDERED: Sodium Chloride 0.9% 1,000 ML IV SCH (22:15)
[2019-10-05] MEDS ORDERED: Promethazine HCl 25 MG/ML VIAL SLOW IVP PRN (22:32)
[2019-10-05] MEDS ORDERED: diphenhydrAMINE 50 MG/ML VIAL IM PRN (22:32)
[2019-10-05] MEDS ORDERED: Naloxone HCl 0.4 mg/ml Vial IV PRN (22:32)
[2019-10-05] MEDS ORDERED: diphenhydrAMINE 25 MG CAP PO PRN (22:32)
[2019-10-05] MEDS ORDERED: Ondansetron HCl/PF 4 MG/2 ML Vial IVP PRN ×2 (22:32→22:35)
[2019-10-05] MEDS ORDERED: Zolpidem Tartrate 5 MG TAB PO PRN (22:32)
[2019-10-05] MEDS ORDERED: Ketorolac Tromethamine 30 MG/ML VIAL IVP PRN (22:32)
[2019-10-05] MEDS ORDERED: Labetalol HCl 100 MG/20 ML VIAL ONE (22:39)
[2019-10-05] MEDS ORDERED: Communication Order-Pharmacy FS SCH (22:45)
[2019-10-05] MEDS: metroNIDAZOLE 500 MG in Premix Bag 1 BAG IVPB SCH (23:52)
[2019-10-06] MEDS ORDERED: Lactated Ringer's 1,000 ML IV SCH (03:15)
[2019-10-06] MEDS: metroNIDAZOLE 500 MG in Premix Bag 1 BAG IVPB SCH ×2 (04:26→12:00)
--- NOTE | 2019-10-06 05:37 | PDOC.FM ---
- Subjective Subjective: Patient in pain this morning after her surgery. Pain is somewhat relieved with [employer]ESSION[employer] pump. She has also had decreased urine output overnight. Received one fluid bolus. Per report nursing spoke with Dr. Avila and he didn't recommend any further fluid boluses at this time. Patient does not take any diuretics regularly. - Objective Vital Signs & Weight: Vital Signs (12 hours) Temp Pulse Resp BP Pulse Ox 10/06/19 04:12 98.7 F 90 16 113/71 100 10/06/19 03:31 100 10/05/19 23:55 100 10/05/19 23:40 101.3 F H 94 16 114/48 L 100 Weight Weight 80.24 kg I&O: 10/04/19 10/05/19 10/06/19 06:59 06:59 06:59 Intake Total 2910 1400 Output Total 950 1650 Balance 1960 -250 Result Diagrams: 10/06/19 05:00 10/06/19 05:00 Phys Exam - Physical Examination Constitutional: NAD HEENT: moist MMs, sclera anicteric Neck: supple, full ROM Respiratory: no wheezing, clear to auscultation bilateral Cardiovascular: RRR holosystolic murmur Gastrointestinal: soft decreased BS, wound vac c/d/i, minimal drainage Musculoskeletal: pulses present arms and thighs appear edematous Neurological: non-focal, moves all 4 limbs Psychiatric: normal affect, A&O x 3 Skin: no rash, normal turgor Dx/Plan (1) DM II (diabetes mellitus, type II), controlled Code(s): E11.9 - TYPE 2 DIABETES MELLITUS WITHOUT COMPLICATIONS Status: Chronic (2) HTN (hypertension) Code(s): I10 - ESSENTIAL (PRIMARY) HYPERTENSION Status: Chronic (3) Hx of breast cancer Code(s): Z85.3 - PERSONAL HISTORY OF MALIGNANT NEOPLASM OF BREAST Status: Chronic (4) SBO (small bowel obstruction) Code(s): K56.609 - UNSP INTESTNL OBST, UNSP TO PARTIAL VERSUS COMPLETE OBST Status: Acute - Plan Plan: 74 y/o F with a pmhx of DM2, HTN, multiple abdominal sx admitted for SBO #SBO - Gen surgery, Dr. Ramon consulted from ED. -Small bowel follow through 10/04: mild-moderate obstruction, patient taken to OR 3/2 -patient started on levaquin and flagyl 3/2 -Currently holding fluid boluses per recommendations by Dr. Avila; will continue to monitor urine output; from physical exam it appears that patient is third-spacing - NPO, holding PO medications currently. - Pt hs hx of hysterectomy, cholcystectomy and colectomy with J pouch. - Previously had X5 SBO's which are usually alleviated with small bowel follow through studies. #Hx of Ulcerative Colitis requiring total colectomy with J Pouch. - Pt does not have UC symptoms anymore since colectomy. #Hx of DM II - diabetic retinopathy - Holding PO medications while NPO. - AC/HS accuchecks, SSI #Hx of HTN - holding PO lisinopril - PRN hydralazine for BP management while NPO #Hx of breast CA - aware Code status: Full code Diet: NPO DVT ppx: SCD's Dispo: stable, admitted to inpt for SBO. Gen surg, Dr. Ramon, consulted, appreciate recs. Patient taken to OR /, on IV abx and IVF currently. NPO. Closely following urine output.
[2019-10-06 05:46] LABS: Anion Gap 17 mmol/L (10-20); BUN (Urea Nitrogen) 20 mg/dL (9.8-20.1); Calc. Creatinine Clearance 62 mL/min (70-130); Calcium 7.8 mg/dL (7.8-10.44); Carbon Dioxide 23 mmol/L (23-31); Chloride 108 mmol/L (98-107); Estimated GFR-MDRD 54; Glucose 209 mg/dL (83-110); Potassium 4.1 mmol/L (3.5-5.1); Sodium 144 mmol/L (136-145)
[2019-10-06 05:49] LABS: Band 57 % (5-11); Hemoglobin 10.8 g/dL (12.0-16.0); Lymphocytes 8 % (21-51); MDiff Complete? YES; Mean Corpuscular HGB CONC 33.3 g/dL (32.0-36.0); Mean Corpuscular Hemoglobin 34.7 pg (27.0-31.0); Mean Platelet Volume 7.4 fL (7.4-10.4); Metamyelocyte 2 % (0-0); Monocytes 9 % (0-10); Neutrophil 24 % (42-75); Platelet Count 188 thou/uL (130-400); RBC Distribution Width 12.3 % (11.5-14.5); Red Blood Cell (RBC) Count 3.12 mill/uL (4.20-5.40); Reflex for Review?? YES; White Blood Cell (WBC) Count 4.5 thou/uL (4.8-10.8)
[2019-10-06] MEDS: Lactated Ringer's 1,000 ML IV SCH ×2 (06:37→16:02)
[2019-10-06] MEDS: HumaLOG 300 UNITS/3 ML VIAL SC PRN ×2 (06:44→18:59)
[2019-10-06] MEDS ORDERED: Albumin 25% 25 GM/100 ML BOT IVPB SCH (07:47)
--- NOTE | 2019-10-06 08:18 | PRG ---
DATE OF SERVICE: 10/06/2019 SUBJECTIVE: The patient is having quite a bit of pain, quite a bit of nausea. OBJECTIVE: VITAL SIGNS: On examination, temperature is 98.7, pulse 90, and blood pressure 113/71. GENERAL: She looks pale. She is awake. NG in place. NG had not put much out, just minimal since surgery. ABDOMEN: Soft. She has a wound VAC on. LABORATORY DATA: Her white count is 4.5, H and H of 10 and 32, and platelet count of 188. Electrolytes, glucoses elevated at 209, otherwise unremarkable. ASSESSMENT: Status post very extensive lysis of adhesions and small bowel resection, very minimal urine output. PLAN: We will give her some albumin. We are going to put in a PICC to start TPN as it will be a while before we can use her gut. Job ID: [id number]
[2019-10-06 08:48] LABS: INR-International Normal Ratio 1.2; PTT 31.5 SEC (22.9-36.1); Prothrombin Time 14.8 SEC (12.0-14.7)
[2019-10-06 08:56] LABS: ALT (SGPT) 10 U/L (8-55); AST (SGOT) 23 U/L (5-34); Albumin 2.8 g/dL (3.4-4.8); Alkaline Phosphatase 44 U/L (40-110); Anion Gap 13 mmol/L (10-20); BUN (Urea Nitrogen) 22 mg/dL (9.8-20.1); Bilirubin, Total 0.5 mg/dL (0.2-1.2); Calc. Creatinine Clearance 56 mL/min (70-130); Calcium 7.9 mg/dL (7.8-10.44); Carbon Dioxide 26 mmol/L (23-31); Chloride 109 mmol/L (98-107); Cholesterol 84 mg/dl (< 200 Desired); Estimated GFR-MDRD 48; Globulin 2.3 g/dL (2.4-3.5); Glucose 227 mg/dL (83-110); HDL Cholesterol 43 mg/dL (>60 Neg Risk); LDL Cholesterol, Calculated 33 mg/dL; Magnesium 1.3 mg/dL (1.6-2.6); Phosphorus 2.9 mg/dL (2.3-4.7); Protein, Total 5.1 g/dL (6.0-8.3); Sodium 144 mmol/L (136-145); Triglycerides 42 mg/dL (Less than 150)
[2019-10-06] MEDS: Famotidine 20 MG TAB PO SCH ×2 (08:59→21:10)
[2019-10-06] MEDS: Famotidine/PF 20 mg/2ml Vial SLOW IVP SCH ×2 (09:04→21:03)
[2019-10-06] MEDS: Enoxaparin Sodium 40 MG/0.4 ML SYRINGE SC SCH (09:04)
--- NOTE | 2019-10-06 10:44 | OP ---
DATE OF PROCEDURE: 10/05/2019 PREOPERATIVE DIAGNOSIS: Small bowel obstruction. PROCEDURES PERFORMED: Exploratory laparotomy, extensive lysis of adhesions, repair of enterotomies, partial small-bowel resection. MANAGER TRUST: Dr. Eleazar Avila was education administrative assistant on this case. INDICATIONS: The patient is a 74-year-old female, who had had a previous total proctocolectomy for ulcerative colitis with a J-pouch, who developed recurrent small-bowel obstruction. She was treated with NG suction, IV hydration, and then a small bowel follow-through that did not go through her bowel after 4 hours. She never passed any contrast through her rectum. When she was hooked back up to suction, she cleared off 1500 mL of the contrast consistent with a complete small-bowel obstruction. FINDINGS: Very hostile abdomen, extensive adhesions. The actual culprit required going all the way to, completely dissecting out her distal small bowel down to the retroperitoneum, where it was adherent to the retroperitoneum causing the obstruction. DESCRIPTION OF PROCEDURE: After informed consent was obtained, the patient was taken to the operating room, given general endotracheal anesthesia, placed in supine position. Abdomen was prepped and draped in usual fashion. A midline incision was performed, subcu divided sharply. The fascia was incised carefully with a 10 blade. There was bowel right under the fascia, so I got an enterotomy right off the bat. It was extensive, very careful lysis of adhesions to free up the anterior abdominal wall and then further extension of the lysis of adhesions. Her whole abdomen was concrete, extremely difficult, so I asked Dr. Avila to come in and assist and he scrubbed in and the two of us took down adhesions completely freed up. We could tell there was dilated bowel and that we could find decompressed bowel and it was going all the way down to the posterior abdomen onto the retroperitoneum. Finally, we were able to release these, but there were multiple enterotomies and some devascularized bowel that encountered during this lysis of adhesions, so this segment of bowel approximately 2-1/2 feet had to be resected and then a [id number] functional end-to-end anastomosis was performed. The proximal bowel was approximated to the distal bowel with 3-0 Vicryl suture. The antimesenteric staple lines were excised. The LEANNE 75 inserted one limb in each limb of bowel and fired. The common enterotomy was closed with TA60. The mesentery was closed with interrupted 2-0 silk suture. There was some serosal tears that were repaired with 3-0 silk suture. The abdomen was irrigated. Irrigation fluid removed. The fascia was closed with a running looped #1 PDS with interrupted #1 Prolene [id number]. The subcu was irrigated due to spillage of enteric contents, which was somewhat solid and feculent. The fascia was closed, but the skin left open. A wound VAC was applied. The patient tolerated the procedure well, was transferred to Recovery in fair condition. Job ID: [id number]
--- NOTE | 2019-10-06 11:29 | SPC ---
SPC CVP LINE PICC INITIAL >5: 10/06/2019 11:26 AM INDICATION: Need for TPN PROCEDURE: Peripherally placed 39 cm dual lumen PICC line. PICC Line Placement: The right arm was prepped and draped in sterile fashion. One percent lidocaine was used for local anesthetic. Under fluoroscopic and ultrasound guidance, the right basilic vein was patent and accessed with a kylee ropuncture needle. A guide wire was then advanced into the right basilic vein. A vascular sheath was then advanced over a guide wire, and a dual lumen PICC line was trimmed. The PICC line w as then advanced into the central venous system. A final placement film demonstrates the tip of the catheter terminated in the caval-atrial junction. After confirmation of the catheter position, the catheter was sutured in place at the skin entry site . There was no immediate complication. Total fluoroscopic time 0.4 minutes. Total exposure 1029 mgray/sq cm IMPRESSION: Peripheral placement of a dual lumen power PICC line into the right basilic vein using fluoroscopic a nd ultrasound guidance.
--- NOTE | 2019-10-06 11:54 | PRG ---
DATE OF SERVICE: 10/06/2019 Soon after we left morning rounds yesterday, Ms. Herrera had to be taken for surgery. Her small bowel series with follow-through showed high-grade continuing bowel obstruction. She was taken to surgery and had lysis of adhesions as well as a resection of part of her small bowel. This morning, she is postop days one and still in a great deal of discomfort, but awake and alert, otherwise. We will continue to follow with the Surgery Service. Job ID: [id number]
[2019-10-06] MEDS ORDERED: Morphine 4 MG/ML VIAL SLOW IVP PRN (13:08)
[2019-10-06] MEDS: Multivitamins, Adult 10 ML, Multitrace-5 5 ML in D15W-AA 5% with Lytes 2,000 ML, Fat Em... IV SCH (14:28)
[2019-10-06] MEDS: Ondansetron PF 4 MG/2 ML Vial IVP PRN (15:56)
[2019-10-06] MEDS: hydrALAZINE 20 MG/ML VIAL SLOW IVP PRN ×2 (15:59→20:59)
[2019-10-06 17:23] LABS: Hemoglobin 8.7 g/dL (12.0-16.0)
[2019-10-06] MEDS ORDERED: Sodium Chloride 0.9% 1,000 ML IV SCH (17:30)
[2019-10-06 17:50] LABS: Anion Gap 11 mmol/L (10-20); BUN (Urea Nitrogen) 21 mg/dL (9.8-20.1); Calc. Creatinine Clearance 58 mL/min (70-130); Calcium 7.8 mg/dL (7.8-10.44); Carbon Dioxide 27 mmol/L (23-31); Chloride 107 mmol/L (98-107); Estimated GFR-MDRD 50; Glucose 260 mg/dL (83-110); Potassium 3.8 mmol/L (3.5-5.1); Sodium 141 mmol/L (136-145)
[2019-10-06 20:23] LABS: Hemoglobin 8.6 g/dL (12.0-16.0)
[2019-10-06 20:41] LABS: Anion Gap 13 mmol/L (10-20); BUN (Urea Nitrogen) 19 mg/dL (9.8-20.1); Calc. Creatinine Clearance 63 mL/min (70-130); Calcium 7.8 mg/dL (7.8-10.44); Carbon Dioxide 25 mmol/L (23-31); Chloride 108 mmol/L (98-107); Estimated GFR-MDRD 54; Glucose 256 mg/dL (83-110); Potassium 3.8 mmol/L (3.5-5.1); Sodium 142 mmol/L (136-145)
[2019-10-06] MEDS: diphenhydrAMINE 50 MG/ML VIAL IVP PRN (21:20)
[2019-10-07] MEDS: diphenhydrAMINE 50 MG/ML VIAL IVP PRN ×3 (00:14→22:53)
[2019-10-07] MEDS: HumaLOG 300 UNITS/3 ML VIAL SC PRN ×4 (00:18→18:47)
[2019-10-07] MEDS: fentaNYL Citrate/PF 2,000 MCG in Sodium Chloride 0.9% 60 ML IV PRN (03:17)
[2019-10-07] MEDS: Lactated Ringer's 1,000 ML IV SCH ×3 (04:47→15:23)
--- NOTE | 2019-10-07 05:50 | PDOC.FM ---
- Subjective Subjective: Patient doing well this morning. A&Ox3, reports her pain is improved. Urine output has improved. Discussed starting long acting insulin as patient has TPN through PICC line, patient agreeable with plan of care. - Objective Vital Signs & Weight: Vital Signs (12 hours) Temp Pulse Resp BP Pulse Ox 10/07/19 04:17 98.7 F 106 H 17 119/74 98 10/06/19 23:54 99.5 F 116 H 18 142/78 H 96 10/06/19 20:59 109 H 10/06/19 20:00 99 10/06/19 19:45 98.2 F 109 H 20 170/83 H 99 10/06/19 18:14 116 H 160/83 H 98 Weight Admit Weight 79.832 kg Weight 80.24 kg I&O: 10/05/19 10/06/19 10/07/19 06:59 06:59 06:59 Intake Total 2910 4400 1485 Output Total 950 1775 680 Balance 1960 2625 805 Result Diagrams: 10/07/19 05:32 10/07/19 05:32 Phys Exam - Physical Examination Constitutional: NAD HEENT: moist MMs, sclera anicteric Neck: supple, full ROM Respiratory: no wheezing, clear to auscultation bilateral holosystolic murmur Gastrointestinal: soft wound vac c/d/i, decreased bowel sounds trace edema BLE Neurological: non-focal, moves all 4 limbs Psychiatric: normal affect, A&O x 3 Skin: no rash, normal turgor Dx/Plan (1) DM II (diabetes mellitus, type II), controlled Code(s): E11.9 - TYPE 2 DIABETES MELLITUS WITHOUT COMPLICATIONS Status: Chronic (2) HTN (hypertension) Code(s): I10 - ESSENTIAL (PRIMARY) HYPERTENSION Status: Chronic (3) Hx of breast cancer Code(s): Z85.3 - PERSONAL HISTORY OF MALIGNANT NEOPLASM OF BREAST Status: Chronic (4) SBO (small bowel obstruction) Code(s): K56.609 - UNSP INTESTNL OBST, UNSP TO PARTIAL VERSUS COMPLETE OBST Status: Acute - Plan Plan: 74 y/o F with a pmhx of DM2, HTN, multiple abdominal sx admitted for SBO #SBO - Gen surgery, Dr. Ramon consulted from ED. -Small bowel follow through 10/04: mild-moderate obstruction, patient taken to OR 10/04 -patient had post-op levaquin and flagyl 10/04 -urine output improved; 400cc over 9 hours > 44ml/hr -patient afebrile overnight, tachycardic -hgb stable overnight -repleted mag and phos this am, will continue to monitor - NPO, holding PO medications currently. Patient has PICC line with TPN running - Pt hs hx of hysterectomy, cholcystectomy and colectomy with J pouch. - Previously had X5 SBO's which are usually alleviated with small bowel follow through studies. #Hx of Ulcerative Colitis requiring total colectomy with J Pouch. - Pt does not have UC symptoms anymore since colectomy. #Hx of DM II - diabetic retinopathy - Holding PO medications while NPO. - AC/HS accuchecks, SSI - required 5u humalog yesterday, patient on TPN, will start 3u lantus this am and titrate as appropriate #Hx of HTN - holding PO lisinopril - PRN hydralazine for BP management while NPO #Hx of breast CA - aware Code status: Full code Diet: NPO DVT ppx: SCD's Dispo: guarded, admitted to inpt for SBO. Gen surg, Dr. Ramon, consulted, appreciate recs. Patient taken to OR 10/04, on IV abx and IVF currently. Continue TPN through PICC. Closely following urine output and H/H.
[2019-10-07 06:36] LABS: ALT (SGPT) 11 U/L (8-55); AST (SGOT) 25 U/L (5-34); Alkaline Phosphatase 42 U/L (40-110); Anion Gap 11 mmol/L (10-20); BUN (Urea Nitrogen) 28 mg/dL (9.8-20.1); Bilirubin, Total 0.3 mg/dL (0.2-1.2); Calc. Creatinine Clearance 57 mL/min (70-130); Carbon Dioxide 28 mmol/L (23-31); Cardiac Risk 1.8 (Less than 4.5); Chloride 106 mmol/L (98-107); Cholesterol 75 mg/dl (< 200 Desired); Estimated GFR-MDRD 49; Globulin 2.1 g/dL (2.4-3.5); Glucose 229 mg/dL (83-110); HDL Cholesterol 42 mg/dL (>60 Neg Risk); LDL Cholesterol, Calculated 24 mg/dL; Magnesium 1.3 mg/dL (1.6-2.6); Phosphorus 1.9 mg/dL (2.3-4.7); Potassium 3.9 mmol/L (3.5-5.1); Protein, Total 5.1 g/dL (6.0-8.3); Sodium 141 mmol/L (136-145); Triglycerides 45 mg/dL (Less than 150)
[2019-10-07 06:39] LABS: Hemoglobin 9.2 g/dL (12.0-16.0); Mean Corpuscular HGB CONC 32.4 g/dL (32.0-36.0); Mean Corpuscular Hemoglobin 34.4 pg (27.0-31.0); Mean Platelet Volume 7.4 fL (7.4-10.4); Platelet Count 155 thou/uL (130-400); RBC Distribution Width 12.2 % (11.5-14.5); Red Blood Cell (RBC) Count 2.66 mill/uL (4.20-5.40); White Blood Cell (WBC) Count 11.2 thou/uL (4.8-10.8)
[2019-10-07] MEDS ORDERED: Magnesium Sulfate 2 GM in Sodium Chloride 0.9% 100 ML IVPB SCH (07:30)
[2019-10-07] MEDS ORDERED: Potassium Phosphate 9 MMOL in Sodium Chloride 0.9% 100 ML IVPB SCH (07:30)
[2019-10-07] MEDS ORDERED: Magnesium 2 GM/50 ML 2 GM in Premix Bag 1 BAG IVPB SCH (07:45)
--- NOTE | 2019-10-07 08:03 | PRG ---
DATE OF SERVICE: 10/07/2019 SUBJECTIVE: The patient reports feeling better, less pain. She is more awake and alert. OBJECTIVE: VITAL SIGNS: Her temperature is 98.7, pulse 106, and blood pressure 119/74. GENERAL: She looks better. LUNGS: Clear. ABDOMEN: Tight. Wound VAC in place. Her NG tube put out 130. Urine output 1000. LABORATORY DATA: Her white count is 11.2, H and H of 9.2 and 28, and platelet count 155. Electrolytes; BUN is high at 28, glucose elevated at 229. ASSESSMENT: Some signs of improvement. PLAN: Physical therapy. Continue TPN. Job ID: [id number]
[2019-10-07 08:33] LABS: Band 69 % (5-11); Lymphocytes 11 % (21-51); MDiff Complete? YES; Metamyelocyte 1 % (0-0); Monocytes 4 % (0-10); Neutrophil 15 % (42-75); Nucleated RBC 2 % (0); Platelet Morphology Comment Appears Adequate; Polychromasia SLIGHT = 2-3 cells (100X) (0-2/hpf); Vacuoles SLIGHT
[2019-10-07] MEDS ORDERED: Insulin Glargine 3 UNITS in Pre-Filled Syringe 1 EACH SC SCH (09:00)
[2019-10-07] MEDS: Famotidine 20 MG TAB PO SCH ×2 (09:30→21:20)
[2019-10-07] MEDS: Enoxaparin Sodium 40 MG/0.4 ML SYRINGE SC SCH (09:39)
[2019-10-07] MEDS: Famotidine/PF 20 mg/2ml Vial SLOW IVP SCH ×2 (09:39→21:20)
--- NOTE | 2019-10-07 11:56 | PRG ---
DATE OF SERVICE: 10/07/2019 Ms. Herrera is talkative and pleasant this morning. She is appearing to have periods of confusion that may be a mild delirium given that she is an elderly lady of postop in the hospital. Her abdomen is flat, tender but no guarding or rebound. She had an episode of tachycardia during the night. Hemoglobin is 9.2 with a hematocrit of 28. She has no evidence of DVT or PE. In fact, she is not short of breath and feels much better this morning. We will continue to monitor with Surgery and appreciate their input. Job ID: [id number]
[2019-10-07] MEDS ORDERED: Sodium Chloride 0.9% 1,000 ML IV SCH (14:45)
[2019-10-07] MEDS: Multivitamins, Adult 10 ML, Multitrace-5 5 ML in D15W-AA 5% with Lytes 2,000 ML, Fat Em... IV SCH (15:23)
[2019-10-08] MEDS: HumaLOG 300 UNITS/3 ML VIAL SC PRN ×5 (00:05→23:10)
--- NOTE | 2019-10-08 06:04 | PDOC.FM ---
- Subjective Subjective: Patient doing well. A&Ox3. Not passing gas, has not yet had a BM. - Objective Vital Signs & Weight: Vital Signs (12 hours) Temp Pulse Resp BP Pulse Ox 10/08/19 03:54 99.1 F 106 H 18 158/80 H 99 10/07/19 23:54 99.7 F H 106 H 18 148/78 H 100 10/07/19 19:27 98.4 F 106 H 20 157/83 H 99 Weight Admit Weight 79.832 kg Weight 80.24 kg I&O: 10/06/19 10/07/19 10/08/19 06:59 06:59 06:59 Intake Total 4400 2985 2457.6 Output Total 1775 1130 625 Balance 2625 1855 1832.6 Result Diagrams: 10/08/19 06:10 10/08/19 06:10 Phys Exam - Physical Examination Constitutional: NAD HEENT: PERRLA, moist MMs Neck: supple, full ROM Respiratory: no wheezing, clear to auscultation bilateral Cardiovascular: RRR holosystolic murmur Gastrointestinal: soft ttp around wound site lower extremities demonstrate trace edema Neurological: non-focal, moves all 4 limbs Psychiatric: normal affect, A&O x 3 Skin: no rash, normal turgor Dx/Plan (1) DM II (diabetes mellitus, type II), controlled Code(s): E11.9 - TYPE 2 DIABETES MELLITUS WITHOUT COMPLICATIONS Status: Chronic (2) HTN (hypertension) Code(s): I10 - ESSENTIAL (PRIMARY) HYPERTENSION Status: Chronic (3) Hx of breast cancer Code(s): Z85.3 - PERSONAL HISTORY OF MALIGNANT NEOPLASM OF BREAST Status: Chronic (4) SBO (small bowel obstruction) Code(s): K56.609 - UNSP INTESTNL OBST, UNSP TO PARTIAL VERSUS COMPLETE OBST Status: Acute (5) Hypophosphatemia Code(s): E83.39 - OTHER DISORDERS OF PHOSPHORUS METABOLISM Status: Acute - Plan Plan: 74 y/o F with a pmhx of DM2, HTN, multiple abdominal sx admitted for SBO #SBO - Gen surgery, Dr. Ramon consulted from ED. -Small bowel follow through 10/04: mild-moderate obstruction, patient taken to OR /2 -patient had post-op levaquin and flagyl /2 -urine output 57ml/hr over last 24hrs -patient afebrile overnight, tachycardic -hgb 7.3, likely dilutional as patient has been receiving LR @ 125, will continue to monitor at this time - NPO, holding PO medications currently. Patient has PICC line with TPN running - Pt hs hx of hysterectomy, cholcystectomy and colectomy with J pouch. - Previously had X5 SBO's which are usually alleviated with small bowel follow through studies. #Hypophosphatemia -phosphorus 1.9 this am, repleted; will continue to monitor #Hx of Ulcerative Colitis requiring total colectomy with J Pouch. - Pt does not have UC symptoms anymore since colectomy. #Hx of DM II - diabetic retinopathy - Holding PO medications while NPO. - AC/HS accuchecks, SSI - required 18u humalog yesterday, patient on TPN, will increase to 12u lantus this am and titrate as appropriate #Hx of HTN - holding PO lisinopril - PRN hydralazine for BP management while NPO #Hx of breast CA - aware Code status: Full code Diet: NPO DVT ppx: SCD's Dispo: guarded, admitted to inpt for SBO. Gen surg, Dr. Ramon, consulted, appreciate recs. Patient taken to OR /, on IVF and TPN currently. Continue TPN through PICC. Closely following urine output and H/H.
[2019-10-08 06:29] LABS: #Eosinphils 0.2 thou/uL (0.0-0.7); #Lymphocytes 0.8 thou/uL (1.20-3.40); #Monocytes 0.3 thou/uL (0.11-0.59); #Neutrophils 9.5 thou/uL (1.40-6.50); %Basophils 0.3 % (0.0-1.0); %Eosinophils 1.6 % (0.0-10.0); %Lymphocytes 7.2 % (21.0-51.0); %Monocytes 3.2 % (0.0-10.0); %Neutrophils 87.8 % (42.0-75.0); Hemoglobin 7.3 g/dL (12.0-16.0); Mean Corpuscular HGB CONC 32.4 g/dL (32.0-36.0); Mean Corpuscular Hemoglobin 34.3 pg (27.0-31.0); Mean Platelet Volume 7.4 fL (7.4-10.4); Platelet Count 145 thou/uL (130-400); RBC Distribution Width 12.1 % (11.5-14.5); Red Blood Cell (RBC) Count 2.12 mill/uL (4.20-5.40); White Blood Cell (WBC) Count 10.8 thou/uL (4.8-10.8)
[2019-10-08 06:52] LABS: ALT (SGPT) 11 U/L (8-55); AST (SGOT) 18 U/L (5-34); Albumin 2.5 g/dL (3.4-4.8); Alkaline Phosphatase 53 U/L (40-110); Anion Gap 7 mmol/L (10-20); BUN (Urea Nitrogen) 30 mg/dL (9.8-20.1); Bilirubin, Total 0.4 mg/dL (0.2-1.2); Calc. Creatinine Clearance 70 mL/min (70-130); Carbon Dioxide 32 mmol/L (23-31); Cardiac Risk 2.5 (Less than 4.5); Chloride 108 mmol/L (98-107); Cholesterol 81 mg/dl (< 200 Desired); Estimated GFR-MDRD 62; Globulin 2.5 g/dL (2.4-3.5); Glucose 244 mg/dL (83-110); HDL Cholesterol 32 mg/dL (>60 Neg Risk); LDL Cholesterol, Calculated 38 mg/dL; Magnesium 2.2 mg/dL (1.6-2.6); Potassium 3.6 mmol/L (3.5-5.1); Sodium 143 mmol/L (136-145); Triglycerides 57 mg/dL (Less than 150)
[2019-10-08 07:32] LABS: Phosphorus 1.9 mg/dL (2.3-4.7)
[2019-10-08] MEDS: fentaNYL Citrate/PF 2,000 MCG in Sodium Chloride 0.9% 60 ML IV PRN (08:20)
[2019-10-08] MEDS: Famotidine/PF 20 mg/2ml Vial SLOW IVP SCH ×2 (08:26→20:22)
[2019-10-08] MEDS: Enoxaparin Sodium 40 MG/0.4 ML SYRINGE SC SCH (08:33)
[2019-10-08] MEDS ORDERED: Potassium Phosphate 9 MMOL in Sodium Chloride 0.9% 100 ML IVPB SCH (08:45)
[2019-10-08] MEDS ORDERED: Insulin Glargine 12 UNITS in Pre-Filled Syringe 1 EACH SC SCH (09:00)
[2019-10-08] MEDS: Famotidine 20 MG TAB PO SCH ×2 (09:08→20:41)
--- NOTE | 2019-10-08 10:23 | PRG ---
DATE OF SERVICE: 10/08/2019 SUBJECTIVE: reports that she has been somewhat confused, but it is getting better. The patient states no nausea. The pain is getting better. Nothing out of bottom. OBJECTIVE: VITAL SIGNS: Temperature 98.3, pulse 102, blood pressure 160/70. GENERAL: She is awake. NG tube has out only 50 mL overnight. ABDOMEN: Looking good. Wound VAC is on. There is no cellulitis. LABORATORY DATA: Her white count is 10, hemoglobin and hematocrit 7.3 and 22, platelet count 145. ASSESSMENT: Status post extensive lysis of adhesions with expected postoperative ileus. PLAN: We will discontinue NG. She can have few ice chips. Continue TPN, ambulation. Job ID: [id number]
--- NOTE | 2019-10-08 12:47 | PRG ---
DATE OF SERVICE: 10/08/2019 Ms. Herrera looks and feels much better this morning. Her NG tube has been removed and she is tolerating ice chips well. Her hemoglobin this morning is 7.3 with hematocrit of 22.4. This is likely all being delusional. Her chemistries are likewise stable with a sodium of 143, potassium 3.6, chloride 108, bicarb 32, BUN 30, and creatinine 0.89. Glucoses on sliding scale are still not at goal, but this will probably improve when she begins to eat. Otherwise, clinically, she is doing much better. Job ID: [id number]
[2019-10-08] MEDS: Multivitamins, Adult 10 ML, Multitrace-5 5 ML in D15W-AA 5% with Lytes 2,000 ML, Fat Em... IV SCH (13:24)
[2019-10-08] MEDS: Lactated Ringer's 1,000 ML IV SCH (15:58)
[2019-10-08] MEDS: Ondansetron PF 4 MG/2 ML Vial IVP PRN (18:02)
[2019-10-08] MEDS: diphenhydrAMINE 50 MG/ML VIAL IVP PRN (23:02)
--- NOTE | 2019-10-09 05:15 | PDOC.FM ---
- Subjective Subjective: Patient doing well this morning. Tolerated ice chips well yesterday. Still denies flatus or BM. Reports of some abdominal pain but otherwise is doing well. A&Ox3 - Objective Vital Signs & Weight: Vital Signs (12 hours) Temp Pulse Resp BP Pulse Ox 10/09/19 03:44 98.7 F 94 18 165/78 H 97 10/08/19 23:54 98.8 F 96 18 169/66 H 100 10/08/19 21:18 98.0 F 94 18 175/81 H 100 Weight Admit Weight 79.832 kg Weight 80.24 kg I&O: 10/07/19 10/08/19 10/09/19 06:59 06:59 06:59 Intake Total 2985 4110.9 1475.2 Output Total 1130 1375 975 Balance 1855 2735.9 500.2 Result Diagrams: 10/09/19 06:31 10/09/19 06:31 Phys Exam - Physical Examination Constitutional: NAD HEENT: moist MMs, sclera anicteric Neck: supple, full ROM Respiratory: no wheezing, clear to auscultation bilateral Cardiovascular: RRR holosystolic murmur Gastrointestinal: soft ttp around surgical incision site, decreased bowel sounds trace edeam BLL; edema R extremity by IV Neurological: non-focal, moves all 4 limbs Psychiatric: normal affect, A&O x 3 Skin: no rash, normal turgor Dx/Plan (1) DM II (diabetes mellitus, type II), controlled Code(s): E11.9 - TYPE 2 DIABETES MELLITUS WITHOUT COMPLICATIONS Status: Chronic (2) HTN (hypertension) Code(s): I10 - ESSENTIAL (PRIMARY) HYPERTENSION Status: Chronic (3) Hx of breast cancer Code(s): Z85.3 - PERSONAL HISTORY OF MALIGNANT NEOPLASM OF BREAST Status: Chronic (4) SBO (small bowel obstruction) Code(s): K56.609 - UNSP INTESTNL OBST, UNSP TO PARTIAL VERSUS COMPLETE OBST Status: Acute (5) Hypophosphatemia Code(s): E83.39 - OTHER DISORDERS OF PHOSPHORUS METABOLISM Status: Acute - Plan Plan: 74 y/o F with a pmhx of DM2, HTN, multiple abdominal sx admitted for SBO #SBO - Gen surgery, Dr. Ramon consulted from ED. -Small bowel follow through 10/04: mild-moderate obstruction, patient taken to OR 10/04 -patient had post-op levaquin and flagyl 10/04 -urine output 69ml/hr over last 24hrs -patient afebrile overnight, tachycardic has improved -hgb 7.1, stable from yesterday -ng tube removed 10/07, tolerating well - Patient tolerated ice chips well yesterday, holding PO medications currently. - Patient has PICC line, appears possibly infiltrated. Holding LR and TPN currently. Will discuss with Dr. Ramon about possibly replacing PICC vs switching to peripheral IV - Pt hs hx of hysterectomy, cholcystectomy and colectomy with J pouch. - Previously had X5 SBO's which are usually alleviated with small bowel follow through studies. #Hypophosphatemia, resolved -phosphorus wnl this am #Hx of Ulcerative Colitis requiring total colectomy with J Pouch. - Pt does not have UC symptoms anymore since colectomy. #Hx of DM II - diabetic retinopathy - Holding PO medications while NPO. - AC/HS accuchecks, SSI - increase to 22u lantus this am and titrate as appropriate #Hx of HTN - holding PO lisinopril - PRN hydralazine for BP management while NPO #Hx of breast CA - aware Code status: Full code Diet: NPO-ice chips DVT ppx: SCD's Dispo: guarded, admitted to inpt for SBO. Gen surg, Dr. Ramon, consulted, appreciate recs. Patient taken to OR 10/04. Holding off on TPN and LR for now due to PICC possible infiltration. Will discuss options with Dr. Ramon. Closely following urine output and H/H.
[2019-10-09 06:41] LABS: #Eosinphils 0.2 thou/uL (0.0-0.7); #Lymphocytes 0.8 thou/uL (1.20-3.40); #Monocytes 0.3 thou/uL (0.11-0.59); #Neutrophils 5.7 thou/uL (1.40-6.50); %Basophils 0.5 % (0.0-1.0); %Eosinophils 3.1 % (0.0-10.0); %Lymphocytes 10.8 % (21.0-51.0); %Monocytes 4.7 % (0.0-10.0); %Neutrophils 80.9 % (42.0-75.0); Hemoglobin 7.1 g/dL (12.0-16.0); Mean Corpuscular HGB CONC 32.7 g/dL (32.0-36.0); Mean Corpuscular Hemoglobin 34.5 pg (27.0-31.0); Mean Platelet Volume 7.4 fL (7.4-10.4); Platelet Count 144 thou/uL (130-400); Red Blood Cell (RBC) Count 2.06 mill/uL (4.20-5.40)
[2019-10-09 07:20] LABS: ALT (SGPT) 10 U/L (8-55); AST (SGOT) 12 U/L (5-34); Albumin 2.4 g/dL (3.4-4.8); Alkaline Phosphatase 48 U/L (40-110); Anion Gap 7 mmol/L (10-20); BUN (Urea Nitrogen) 23 mg/dL (9.8-20.1); Bilirubin, Total 0.3 mg/dL (0.2-1.2); Calc. Creatinine Clearance 80 mL/min (70-130); Calcium 8.3 mg/dL (7.8-10.44); Carbon Dioxide 31 mmol/L (23-31); Cardiac Risk 3.6 (Less than 4.5); Chloride 108 mmol/L (98-107); Cholesterol 86 mg/dl (< 200 Desired); Estimated GFR-MDRD 72; Globulin 2.6 g/dL (2.4-3.5); Glucose 262 mg/dL (83-110); HDL Cholesterol 24 mg/dL (>60 Neg Risk); LDL Cholesterol, Calculated 49 mg/dL; Magnesium 1.9 mg/dL (1.6-2.6); Phosphorus 2.5 mg/dL (2.3-4.7); Potassium 3.7 mmol/L (3.5-5.1); Sodium 142 mmol/L (136-145); Triglycerides 67 mg/dL (Less than 150)
[2019-10-09] MEDS ORDERED: Insulin Glargine 22 UNITS in Pre-Filled Syringe 1 EACH SC SCH (09:00)
[2019-10-09] MEDS: Famotidine/PF 20 mg/2ml Vial SLOW IVP SCH ×2 (09:07→19:47)
[2019-10-09] MEDS: Enoxaparin Sodium 40 MG/0.4 ML SYRINGE SC SCH (09:08)
[2019-10-09] MEDS: Famotidine 20 MG TAB PO SCH ×2 (09:08→19:49)
--- NOTE | 2019-10-09 11:01 | ULT ---
ULTRASOUND DOPPLER DUPLEX VENOUS RIGHT UPPER EXTREMITY LIMITED: DATE: 10/09/2019 HISTORY: 74-year-old female with right-sided PICC placed 3 days ago. Right upper extremity pain. Suspected rig ht subclavian vein thrombosis. TECHNIQUE: Grayscale, color-flow, and spectral analysis, of right internal jugular, subclavian, and axillary vei ns. The rest of the right upper cavity veins were not evaluated.. FINDINGS: There is demonstration of blood flow with normal compressibility, of the right internal jugular and a xillary, veins. Blood flow is demonstrated in the right subclavian vein. IMPRESSION: No occlusion of right subclavian vein
--- NOTE | 2019-10-09 11:19 | PRG ---
DATE OF SERVICE: 10/09/2019 SUBJECTIVE: She says at this time quite a bit of pain, but she is much more awake and alert. No nausea or vomiting. She has some right arm swelling that is the same arm that the PICC line is. We did a venous ultrasound and there was no evidence of clot. OBJECTIVE: VITAL SIGNS: Temperature is 98.1, pulse 95, blood pressure 158/76. GENERAL: She is awake, alert. ABDOMEN: Soft. There is no cellulitis. LABORATORY DATA: Her white count 7, H and H are 7.1 and 21.7, platelet count 144. Electrolytes are fine. ASSESSMENT: Doing well. PLAN: Continue TPN. Job ID: [id number]
--- NOTE | 2019-10-09 11:58 | PRG ---
DATE OF SERVICE: 10/09/2019 Ms. Herrera is alert this morning, but a little confused. Her abdomen is soft, flat, tender, but nondistended. We will work with Surgery in deciding her clear liquid versus a full liquid status. Job ID: [id number]
[2019-10-09] MEDS: HumaLOG 300 UNITS/3 ML VIAL SC PRN ×2 (12:52→18:36)
[2019-10-09] MEDS: fentaNYL Citrate/PF 2,000 MCG in Sodium Chloride 0.9% 60 ML IV PRN (14:11)
[2019-10-09] MEDS: Multivitamins, Adult 10 ML, Multitrace-5 5 ML in D15W-AA 5% with Lytes 2,000 ML, Fat Em... IV SCH (14:50)
[2019-10-09] MEDS: Lactated Ringer's 1,000 ML IV SCH (18:36)
[2019-10-09] MEDS: hydrALAZINE 20 MG/ML VIAL SLOW IVP PRN (23:59)
[2019-10-10] MEDS: HumaLOG 300 UNITS/3 ML VIAL SC PRN ×4 (05:27→23:55)
--- NOTE | 2019-10-10 05:35 | PDOC.FM ---
- Subjective Subjective: Patient doing well this morning. Continues to tolerate her ice chips well. Still reports some abdominal pain around the surgical site. - Objective Vital Signs & Weight: Vital Signs (12 hours) Temp Pulse Resp BP BP BP Pulse Ox 10/10/19 03:37 97.9 F 110 H 20 161/80 H 94 L 10/10/19 00:01 99.6 F 106 H 18 94 L 10/09/19 23:59 106 H 167/81 H 10/09/19 19:50 97.9 F 106 H 20 160/84 H 99 Weight Admit Weight 79.832 kg Weight 80.24 kg I&O: 10/08/19 10/09/19 10/10/19 06:59 06:59 06:59 Intake Total 4110.9 1475.2 1120 Output Total 1375 1675 400 Balance 2735.9 -199.8 720 Result Diagrams: 10/09/19 06:31 10/10/19 05:41 Phys Exam - Physical Examination Constitutional: NAD HEENT: moist MMs, sclera anicteric Neck: supple, full ROM Respiratory: no wheezing, clear to auscultation bilateral Cardiovascular: RRR holosystolic murmur Gastrointestinal: soft ttp around surgical site Musculoskeletal: pulses present trace BLE edema Neurological: non-focal, moves all 4 limbs Psychiatric: normal affect, A&O x 3 Skin: no rash, normal turgor Dx/Plan (1) DM II (diabetes mellitus, type II), controlled Code(s): E11.9 - TYPE 2 DIABETES MELLITUS WITHOUT COMPLICATIONS Status: Chronic (2) HTN (hypertension) Code(s): I10 - ESSENTIAL (PRIMARY) HYPERTENSION Status: Chronic (3) Hx of breast cancer Code(s): Z85.3 - PERSONAL HISTORY OF MALIGNANT NEOPLASM OF BREAST Status: Chronic (4) SBO (small bowel obstruction) Code(s): K56.609 - UNSP INTESTNL OBST, UNSP TO PARTIAL VERSUS COMPLETE OBST Status: Acute (5) Hypophosphatemia Code(s): E83.39 - OTHER DISORDERS OF PHOSPHORUS METABOLISM Status: Acute - Plan Plan: 74 y/o F with a pmhx of DM2, HTN, multiple abdominal sx admitted for SBO #SBO - Gen surgery, Dr. Ramon consulted from ED. -Small bowel follow through 10/04: mild-moderate obstruction, patient taken to OR 10/04 -patient had post-op levaquin and flagyl 10/04 -nova removed 10/08 -patient afebrile overnight, tachycardic -hgb pending this morning, wound vanc draining small amount of serosanguinous fluid; will continue to monitor -ng tube removed 10/07, tolerating well - Patient tolerated ice chips well yesterday, holding PO medications currently. - Patient has PICC line, continue LR and TPN - Pt hs hx of hysterectomy, cholcystectomy and colectomy with J pouch. - Previously had X5 SBO's which are usually alleviated with small bowel follow through studies. #Hypophosphatemia -phosphorus 2.2 this am, repleted -will continue to monitor #Hx of Ulcerative Colitis requiring total colectomy with J Pouch. - Pt does not have UC symptoms anymore since colectomy. #Hx of DM II - diabetic retinopathy - Holding PO medications while NPO. - AC/HS accuchecks, SSI - increase to 30u lantus this am and titrate as appropriate #Hx of HTN - holding PO lisinopril - PRN hydralazine for BP management while NPO #Hx of breast CA - aware Code status: Full code Diet: NPO-ice chips DVT ppx: SCD's Dispo: guarded, admitted to in for SBO. Gen surg, Dr. Ramon, consulted, appreciate recs. Patient taken to OR 10/04. Continue TPN and LR through PICC. Continue ice chips. Addendum - Attending - Attending Attestation Date/Time: 10/10/19 2990 I personally evaluated the patient and discussed the management with Dr. Ballesteros. I agree with the History, Examination, Assessment and Plan documented above with any addition or exceptions noted below. Patient here s/p resection for SBO. Continues on TPN. Pain controlled. Awaiting H/H for possible transfusion. Awaiting further Gensurgery recs.
[2019-10-10 06:15] LABS: ALT (SGPT) 8 U/L (8-55); AST (SGOT) 11 U/L (5-34); Albumin 2.4 g/dL (3.4-4.8); Alkaline Phosphatase 48 U/L (40-110); Anion Gap 8 mmol/L (10-20); BUN (Urea Nitrogen) 20 mg/dL (9.8-20.1); Bilirubin, Total 0.3 mg/dL (0.2-1.2); Calc. Creatinine Clearance 83 mL/min (70-130); Calcium 8.3 mg/dL (7.8-10.44); Carbon Dioxide 29 mmol/L (23-31); Cardiac Risk 3.8 (Less than 4.5); Chloride 108 mmol/L (98-107); Cholesterol 84 mg/dl (< 200 Desired); Estimated GFR-MDRD 76; Globulin 2.5 g/dL (2.4-3.5); Glucose 289 mg/dL (83-110); HDL Cholesterol 22 mg/dL (>60 Neg Risk); LDL Cholesterol, Calculated 47 mg/dL; Magnesium 1.7 mg/dL (1.6-2.6); Phosphorus 2.2 mg/dL (2.3-4.7); Potassium 3.6 mmol/L (3.5-5.1); Protein, Total 4.9 g/dL (6.0-8.3); Sodium 141 mmol/L (136-145); Triglycerides 73 mg/dL (Less than 150)
[2019-10-10] MEDS ORDERED: Potassium Phosphate 30 MMOL in Sodium Chloride 0.9% 500 ML IVPB SCH (07:30)
[2019-10-10 08:29] LABS: #Eosinphils 0.1 thou/uL (0.0-0.7); #Lymphocytes 0.9 thou/uL (1.20-3.40); #Monocytes 0.4 thou/uL (0.11-0.59); #Neutrophils 4.3 thou/uL (1.40-6.50); %Basophils 0.1 % (0.0-1.0); %Eosinophils 1.6 % (0.0-10.0); %Lymphocytes 15.3 % (21.0-51.0); %Monocytes 7.4 % (0.0-10.0); %Neutrophils 75.6 % (42.0-75.0); Hemoglobin 7.4 g/dL (12.0-16.0); Mean Corpuscular HGB CONC 33.2 g/dL (32.0-36.0); Mean Corpuscular Hemoglobin 34.5 pg (27.0-31.0); Mean Platelet Volume 7.5 fL (7.4-10.4); Platelet Count 153 thou/uL (130-400); RBC Distribution Width 11.9 % (11.5-14.5); Red Blood Cell (RBC) Count 2.15 mill/uL (4.20-5.40); White Blood Cell (WBC) Count 5.7 thou/uL (4.8-10.8)
[2019-10-10] MEDS: Famotidine 20 MG TAB PO SCH ×2 (08:51→19:59)
[2019-10-10] MEDS: Enoxaparin Sodium 40 MG/0.4 ML SYRINGE SC SCH (08:51)
[2019-10-10] MEDS: Famotidine/PF 20 mg/2ml Vial SLOW IVP SCH ×2 (08:51→19:59)
[2019-10-10] MEDS ORDERED: Insulin Glargine 30 UNITS in Pre-Filled Syringe 1 EACH SC SCH (09:00)
[2019-10-10] MEDS: hydrALAZINE 20 MG/ML VIAL SLOW IVP PRN ×2 (12:32→23:55)
[2019-10-10] MEDS: Multivitamins, Adult 10 ML, Multitrace-5 5 ML in D15W-AA 5% with Lytes 2,000 ML, Fat Em... IV SCH (15:27)
[2019-10-10] MEDS: fentaNYL Citrate/PF 2,000 MCG in Sodium Chloride 0.9% 60 ML IV PRN (15:36)
[2019-10-10] MEDS: Ondansetron PF 4 MG/2 ML Vial IVP PRN (17:21)
[2019-10-10] MEDS: Lactated Ringer's 1,000 ML IV SCH ×2 (17:53→21:23)
--- NOTE | 2019-10-10 18:41 | PRG ---
DATE OF SERVICE: 10/10/2019 SUBJECTIVE: Ms. Herrera is a 74-year-old woman, who is postoperative day #5, status post exploratory laparotomy, extensive adhesiolysis for small bowel obstruction. She is awake and alert today, reporting adequate pain control. She reports no passage of flatus or bowel movement. She denies any nausea or vomiting. Urinary output is adequate for the patient's age and weight. A nasogastric tube in place, returned 975 mL of bile-tinged effluent in the last 24 hours. OBJECTIVE: VITAL SIGNS: This morning include blood pressure 157/79, pulse 95, respiratory rate is 18, temperature 98.3 degrees Fahrenheit, oxygen saturation is 99% on room air. HEENT: Sclera are anicteric. NECK: She has no jugular venous distention noted. HEART: Reveals regular rate and rhythm. No murmurs or gallops auscultated. LUNGS: Clear to auscultation bilaterally. Her breathing is regular and nonlabored. ABDOMEN: Soft and nondistended. Incision is intact, clean, and dry. She has incisional tenderness to palpation with no peritoneal signs on examination. NEUROLOGIC: Reveals no focal deficits present. LABORATORY FINDINGS: Today include a CBC with 5700 white blood cells, hemoglobin and hematocrit are stable at 7.4 and 22.3 respectively. Platelet count is 153,000. Metabolic profile; sodium 141, potassium 3.6, chloride is 108, bicarb is 29, BUN is 20, creatinine is 0.75, glucose is 289, magnesium 1.7, phosphorus 2.2. AST and ALT are normal at 11 and 8 respectively. She remains on TPN. IMPRESSIONS: 1. Postoperative day #5, status post exploratory laparotomy with extensive adhesiolysis and enterotomy repair. 2. Acute hypokalemia. 3. Acute hypomagnesemia. 4. Acute hypophosphatemia. 5. Acute hyperglycemia on TPN. PLAN: 1. Correct abnormal electrolytes. 2. Optimize glucose control. 3. Increase activity per Physical and Occupational Therapy. 4. Continue with bowel rest with nasogastric tube decompression. Above findings and plan discussed with the patient, who indicates understanding of information given. I have answered her questions. Job ID: [id number]
[2019-10-10] MEDS: diphenhydrAMINE 50 MG/ML VIAL IVP PRN (21:23)
--- NOTE | 2019-10-11 05:20 | PRG ---
DATE OF SERVICE: SUBJECTIVE: The patient is currently on the surgical floor. She is postop day #5, status post exploratory laparotomy with extensive adhesiolysis for small-bowel obstruction. The patient is currently tolerating ice chips. She states that her pain is controlled with her GLASS BENDER. She reports that she was not able to work with therapy today because her blood pressure was elevated. She is requesting that she be allowed to ambulate now with the nurses as she knows how important it is to walk. She denies nausea or vomiting. She states that she passed gas once. PHYSICAL EXAMINATION: VITAL SIGNS: Stable. The patient is afebrile. GENERAL: The patient is resting comfortably in bed. She is awake, alert, conversant, appears in no distress. LUNGS: Clear to auscultation bilaterally. HEART: Regular rate and rhythm. ABDOMEN: Soft, nontender with hypoactive bowel sounds. EXTREMITIES: Neurovascularly intact x4. ASSESSMENT: Postop day #5, status post exploratory laparotomy with extensive adhesiolysis for small bowel obstruction. PLAN: Plan will be to continue supportive care. Encourage physical and occupational therapy. I have discussed with charge nurse and the patient's primary nurse lc allowing her to ambulate with assistance and they assured me that this will happen. Continue ice chips, low intermittent wall suction while in bed or in the chair. Re-evaluate tomorrow for bowel function. Job ID: [id number]
[2019-10-11 05:22] LABS: ALT (SGPT) 12 U/L (8-55); AST (SGOT) 19 U/L (5-34); Albumin 2.5 g/dL (3.4-4.8); Alkaline Phosphatase 53 U/L (40-110); Anion Gap 8 mmol/L (10-20); BUN (Urea Nitrogen) 19 mg/dL (9.8-20.1); Bilirubin, Total 0.3 mg/dL (0.2-1.2); Calc. Creatinine Clearance 87 mL/min (70-130); Calcium 8.4 mg/dL (7.8-10.44); Carbon Dioxide 29 mmol/L (23-31); Cardiac Risk 3.7 (Less than 4.5); Chloride 107 mmol/L (98-107); Cholesterol 81 mg/dl (< 200 Desired); Estimated GFR-MDRD 79; Globulin 2.5 g/dL (2.4-3.5); Glucose 191 mg/dL (83-110); HDL Cholesterol 22 mg/dL (>60 Neg Risk); LDL Cholesterol, Calculated 46 mg/dL; Magnesium 1.8 mg/dL (1.6-2.6); Phosphorus 3.1 mg/dL (2.3-4.7); Potassium 3.4 mmol/L (3.5-5.1); Sodium 141 mmol/L (136-145); Triglycerides 65 mg/dL (Less than 150)
--- NOTE | 2019-10-11 05:34 | PDOC.FM ---
- Subjective Subjective: Patient continues to do well this morning. Reports of continued pain at the incision site. Continues to tolerate ice chips. Denies flatus or BM at this time. - Objective Vital Signs & Weight: Vital Signs (12 hours) Temp Pulse Resp BP BP Pulse Ox 10/11/19 04:00 98.9 F 98 16 139/61 94 L 10/11/19 00:00 98.5 F 99 16 173/68 H 97 10/10/19 23:55 99 173/68 H 10/10/19 20:00 97.9 F 95 14 167/77 H 96 Weight Admit Weight 79.832 kg Weight 80.24 kg I&O: 10/09/19 10/10/19 10/11/19 06:59 06:59 07:59 Intake Total 1475.2 1120 Output Total 1675 400 Balance -199.8 720 Result Diagrams: 10/10/19 08:09 10/11/19 04:35 Phys Exam - Physical Examination Constitutional: NAD HEENT: moist MMs, sclera anicteric Neck: supple, full ROM Respiratory: no wheezing, clear to auscultation bilateral Cardiovascular: RRR holosystolic murmur Gastrointestinal: soft, positive bowel sounds ttp around incision site; wound vac in place, c/d/i Musculoskeletal: pulses present trace edema BLE Neurological: non-focal, moves all 4 limbs Psychiatric: normal affect, A&O x 3 Skin: no rash, normal turgor Dx/Plan (1) DM II (diabetes mellitus, type II), controlled Code(s): E11.9 - TYPE 2 DIABETES MELLITUS WITHOUT COMPLICATIONS Status: Chronic (2) HTN (hypertension) Code(s): I10 - ESSENTIAL (PRIMARY) HYPERTENSION Status: Chronic (3) Hx of breast cancer Code(s): Z85.3 - PERSONAL HISTORY OF MALIGNANT NEOPLASM OF BREAST Status: Chronic (4) SBO (small bowel obstruction) Code(s): K56.609 - UNSP INTESTNL OBST, UNSP TO PARTIAL VERSUS COMPLETE OBST Status: Acute (5) Hypophosphatemia Code(s): E83.39 - OTHER DISORDERS OF PHOSPHORUS METABOLISM Status: Acute - Plan Plan: 74 y/o F with a pmhx of DM2, HTN, multiple abdominal sx admitted for SBO #SBO - Gen surgery, Dr. Ramon consulted from ED. -Small bowel follow through 10/04: mild-moderate obstruction, patient taken to OR 10/04 -patient had post-op levaquin and flagyl 10/04 -nova removed 10/08 -patient afebrile overnight, tachycardia improved -hgb pending this morning, stable yesterday; will continue to monitor -ng tube removed 10/07, tolerating well - Patient continues to tolerate ice chips well, holding PO medications currently. - Patient has PICC line, continue LR and TPN - Continue working with PT/OT - Pt hs hx of hysterectomy, cholcystectomy and colectomy with J pouch. - Previously had X5 SBO's which are usually alleviated with small bowel follow through studies. #Hypophosphatemia, resolved -will continue to monitor #Hypokalemia -potassium 3.4 this am -replete and continue to monitor #Hx of Ulcerative Colitis requiring total colectomy with J Pouch. - Pt does not have UC symptoms anymore since colectomy. #Hx of DM II - diabetic retinopathy - Holding PO medications while NPO. - AC/HS accuchecks, SSI - increase to 40u lantus this am and titrate as appropriate #Hx of HTN - holding PO lisinopril - PRN hydralazine for BP management while NPO #Hx of breast CA - aware Code status: Full code Diet: NPO-ice chips DVT ppx: SCD's Dispo: guarded, admitted to inpt for SBO. Gen surg, Dr. Ramon, consulted, appreciate recs. Patient taken to OR 10/04. Continue TPN and LR through PICC. Continue ice chips. Addendum - Attending - Attending Attestation Date/Time: 10/11/19 9135 I personally evaluated the patient and discussed the management with Dr. Ballesteros. I agree with the History, Examination, Assessment and Plan documented above with any addition or exceptions noted below.
[2019-10-11] MEDS ORDERED: Potassium Chloride 40 MEQ in Premix Bag 1 BAG IVPB SCH (06:00)
[2019-10-11] MEDS ORDERED: Magnesium 2 GM/50 ML 2 GM in Premix Bag 1 BAG IVPB SCH (06:00)
[2019-10-11] MEDS: Famotidine 20 MG TAB PO SCH ×2 (08:39→21:35)
[2019-10-11] MEDS: Lisinopril 10 MG TAB PO SCH (08:39)
[2019-10-11] MEDS: Insulin Glargine 40 UNITS in Pre-Filled Syringe 1 EACH SC SCH (08:40)
[2019-10-11] MEDS: Enoxaparin Sodium 40 MG/0.4 ML SYRINGE SC SCH (08:40)
[2019-10-11] MEDS: Famotidine/PF 20 mg/2ml Vial SLOW IVP SCH ×2 (08:46→21:30)
[2019-10-11] MEDS: Acetaminophen 500 MG TAB PO SCH ×3 (11:06→21:36)
[2019-10-11] MEDS: traMADol HCl 50 MG TAB PO SCH ×3 (11:06→21:36)
[2019-10-11 11:22] LABS: #Eosinphils 0.1 thou/uL (0.0-0.7); #Lymphocytes 0.7 thou/uL (1.20-3.40); #Monocytes 0.7 thou/uL (0.11-0.59); #Neutrophils 4.3 thou/uL (1.40-6.50); %Basophils 0.8 % (0.0-1.0); %Eosinophils 1.5 % (0.0-10.0); %Lymphocytes 11.8 % (21.0-51.0); %Monocytes 11.2 % (0.0-10.0); %Neutrophils 74.7 % (42.0-75.0); Hemoglobin 7.8 g/dL (12.0-16.0); Mean Corpuscular HGB CONC 32.9 g/dL (32.0-36.0); Mean Corpuscular Hemoglobin 33.9 pg (27.0-31.0); Mean Platelet Volume 7.7 fL (7.4-10.4); Platelet Count 205 thou/uL (130-400); RBC Distribution Width 12.1 % (11.5-14.5); Red Blood Cell (RBC) Count 2.29 mill/uL (4.20-5.40); White Blood Cell (WBC) Count 5.8 thou/uL (4.8-10.8)
--- NOTE | 2019-10-11 12:17 | PRG ---
DATE OF SERVICE: 10/11/2019 SUBJECTIVE: Ms. Herrera is a 74-year-old woman postop day #6 today, status post exploratory laparotomy with extensive adhesiolysis. She reports adequate pain control today. She is passing some flatus. No bowel movement yet. She denies any nausea or vomiting. OBJECTIVE: VITAL SIGNS: Her vital signs this morning include blood pressure 174/80, pulse is 96, respiratory rate is 14, temperature is 98.5 degrees Fahrenheit, and oxygen saturation is 94% on room air. HEENT: Pupils are equal, round, reactive to light and accommodation. HEART: Reveals regular rate and rhythm. No murmurs or gallops auscultated. LUNGS: Clear to auscultation bilaterally. Her breathing is regular and nonlabored. ABDOMEN: Soft and nondistended. Incision is intact, clean, and dry. She has no peritoneal signs on examination. Bowel sounds are present in all 4 quadrants and normoactive. NEUROLOGIC: Reveals no focal deficits present. LABORATORY FINDINGS: 5800 white blood cells, hemoglobin and hematocrit stable at 7.8 and 23.6 respectively. Platelet count is 205,000. Metabolic profile; sodium 141, potassium 3.4, chloride is 107, bicarb is 29, BUN is 19, creatinine 0.72, glucose 191, magnesium 1.8, and phosphorus is 3.1. IMPRESSION: 1. Postoperative day #6, status post exploratory laparotomy with extensive adhesiolysis. 2. Resolving adynamic ileus. 3. Acute hypokalemia. 4. Acute hypomagnesemia. PLAN: 1. Correct abnormal electrolytes. 2. Increase activity per Physical and Occupational Therapy. 3. We will initiate clear liquid diet. 4. Convert analgesics to oral agent and discontinue WIRE ROLLER. 5. Above findings and plan discussed with the patient, who indicates understanding information given. I have answered her questions. Job ID: [id number]
[2019-10-11] MEDS: HumaLOG 300 UNITS/3 ML VIAL SC PRN ×2 (13:10→18:36)
[2019-10-11] MEDS: hydrALAZINE 20 MG/ML VIAL SLOW IVP PRN ×2 (13:10→17:35)
[2019-10-11] MEDS: Multivitamins, Adult 10 ML, Multitrace-5 5 ML in D15W-AA 5% with Lytes 2,000 ML, Fat Em... IV SCH (14:43)
[2019-10-11] MEDS: Ondansetron PF 4 MG/2 ML Vial IVP PRN ×2 (17:31→23:56)
[2019-10-11] MEDS: Promethazine HCl 25 MG/ML VIAL IM PRN (21:19)
[2019-10-11] MEDS: Gabapentin 300 MG CAP PO SCH (21:35)
[2019-10-12] MEDS: HumaLOG 300 UNITS/3 ML VIAL SC PRN ×4 (00:08→18:31)
[2019-10-12] MEDS: Acetaminophen 500 MG TAB PO SCH ×5 (05:19→21:09)
[2019-10-12] MEDS: traMADol HCl 50 MG TAB PO SCH ×5 (05:19→21:09)
[2019-10-12] MEDS: Promethazine HCl 25 MG/ML VIAL IM PRN (05:20)
--- NOTE | 2019-10-12 06:09 | PDOC.FM ---
- Subjective Subjective: Doing well this morning, no acute events overnight. Tolerating clear liquid diet yesterday but still with mild nausea and vomiting. Did have 1 normal BM overnight and passing flatus. Abd pain improved with mild soreness around surgical site. No fever/chills, CP, SOB. Ambulating in room. - Objective MAR Reviewed: Yes Vital Signs & Weight: Vital Signs (12 hours) Temp Pulse Resp BP Pulse Ox 10/11/19 20:00 98.1 F 78 18 172/81 H 96 Weight Admit Weight 79.832 kg Weight 80.24 kg I&O: 10/10/19 10/11/19 10/12/19 05:59 06:59 06:59 Intake Total 2420 Output Total 300 Balance 2120 Result Diagrams: 10/12/19 06:10 10/12/19 06:10 Phys Exam - Physical Examination Constitutional: NAD (resting comfortably, good spirits) HEENT: moist MMs Neck: no nodes Respiratory: no wheezing, no rales, no rhonchi, clear to auscultation bilateral Cardiovascular: RRR, no rub 4/6 systolic ejection murmur, best heard over sternal border Gastrointestinal: soft, no distention, positive bowel sounds appropriately TTP around surgical site, wound vac in clear, small output Musculoskeletal: no edema Neurological: moves all 4 limbs Psychiatric: normal affect, A&O x 3 Dx/Plan (1) SBO (small bowel obstruction) Code(s): K56.609 - UNSP INTESTNL OBST, UNSP TO PARTIAL VERSUS COMPLETE OBST Status: Acute (2) DM II (diabetes mellitus, type II), controlled Code(s): E11.9 - TYPE 2 DIABETES MELLITUS WITHOUT COMPLICATIONS Status: Chronic (3) HTN (hypertension) Code(s): I10 - ESSENTIAL (PRIMARY) HYPERTENSION Status: Chronic - Plan Plan: 74 y/o F with a pmhx of DM2, HTN, multiple abdominal sx admitted for SBO #SBO, POD #7 - Gen surgery, Dr. Ramon consulted from ED - Small bowel follow through 10/04: mild-moderate obstruction, patient taken to OR 3/. - s/p Levaquin and flagyl, nova removed 3, ng tube removed 3 - Advanced to clear liquid yesterday, mild nausea and vomiting but improving, had BM and passing flatus - Patient has PICC line, continue LR and TPN - Continue working with PT/OT, encourage ambulation - Pt hs hx of hysterectomy, cholcystectomy and colectomy with J pouch. - Previously had X5 SBO's which are usually alleviated with small bowel follow through studies. - Pt transitioned from BASE BRANDER to oral tramadol for pain - zofran and phenergan for nausea #Macrocytic Anemia - Stable, Hb 7.8, AM pending, no s/s of acute blood loss - likely 2/2 nutritional and chronic disease - Macrocytic, will order B12 and folate #Hypophosphatemia, resolved -will continue to monitor #Hypokalemia -potassium 3.4 yesterday, replaced and monitoring #Hx of Ulcerative Colitis requiring total colectomy with J Pouch. - Pt does not have UC symptoms since colectomy. #Hx of DM II - diabetic retinopathy - Holding PO medications while NPO. - AC/HS accuchecks, SSI - increased to 40u lantus yesterday and titrate as appropriate #Hx of HTN - restarted home lisinopril yesterday, BP still elevated, consider increased dose - PRN hydralazine for BP management while NPO #Hx of breast CA - aware Code status: Full code Diet: clear liquid DVT ppx: SCD's Dispo: Admitted to inpt for SBO. Gen surg, Dr. Ramon, consulted, appreciate recs. Patient taken to OR 3. Continue TPN and LR through PICC. Continue clear liquid diet, apprec surg recs and assistance. Addendum - Attending - Attending Attestation Date/Time: 10/12/19 [id number] I personally evaluated the patient and discussed the management with Dr. Beebe. I agree with the History, Examination, Assessment and Plan documented above with any addition or exceptions noted below. Patient overall feeling well. Feels depressed at her current condition. Continue surgical recs for SBO, advance to clears. Continue TPN. Consult Rehab.
[2019-10-12 06:25] LABS: #Eosinphils 0.1 thou/uL (0.0-0.7); #Lymphocytes 0.7 thou/uL (1.20-3.40); #Monocytes 0.5 thou/uL (0.11-0.59); #Neutrophils 4.1 thou/uL (1.40-6.50); %Basophils 0.1 % (0.0-1.0); %Eosinophils 2.5 % (0.0-10.0); %Lymphocytes 13.2 % (21.0-51.0); %Monocytes 8.9 % (0.0-10.0); %Neutrophils 75.4 % (42.0-75.0); Hemoglobin 8.7 g/dL (12.0-16.0); Mean Corpuscular HGB CONC 34.3 g/dL (32.0-36.0); Mean Corpuscular Hemoglobin 35.1 pg (27.0-31.0); Mean Platelet Volume 8.1 fL (7.4-10.4); Platelet Count 209 thou/uL (130-400); RBC Distribution Width 12.2 % (11.5-14.5); Red Blood Cell (RBC) Count 2.48 mill/uL (4.20-5.40); White Blood Cell (WBC) Count 5.4 thou/uL (4.8-10.8)
[2019-10-12 06:48] LABS: ALT (SGPT) 21 U/L (8-55); AST (SGOT) 22 U/L (5-34); Albumin 2.6 g/dL (3.4-4.8); Alkaline Phosphatase 61 U/L (40-110); Anion Gap 10 mmol/L (10-20); BUN (Urea Nitrogen) 22 mg/dL (9.8-20.1); Bilirubin, Total 0.3 mg/dL (0.2-1.2); Calc. Creatinine Clearance 82 mL/min (70-130); Calcium 8.4 mg/dL (7.8-10.44); Carbon Dioxide 28 mmol/L (23-31); Cardiac Risk 3.2 (Less than 4.5); Chloride 103 mmol/L (98-107); Cholesterol 77 mg/dl (< 200 Desired); Estimated GFR-MDRD 74; Globulin 2.7 g/dL (2.4-3.5); Glucose 202 mg/dL (83-110); HDL Cholesterol 24 mg/dL (>60 Neg Risk); LDL Cholesterol, Calculated 41 mg/dL; Magnesium 2.1 mg/dL (1.6-2.6); Phosphorus 3.3 mg/dL (2.3-4.7); Potassium 3.7 mmol/L (3.5-5.1); Protein, Total 5.3 g/dL (6.0-8.3); Sodium 137 mmol/L (136-145); Triglycerides 60 mg/dL (Less than 150)
[2019-10-12] MEDS ORDERED: Polyethylene Glycol 3350 17 GM Packet PO SCH (09:00)
[2019-10-12] MEDS: Enoxaparin Sodium 40 MG/0.4 ML SYRINGE SC SCH (09:20)
[2019-10-12] MEDS: Insulin Glargine 40 UNITS in Pre-Filled Syringe 1 EACH SC SCH (09:20)
[2019-10-12] MEDS: Famotidine 20 MG TAB PO SCH ×2 (09:20→20:59)
[2019-10-12] MEDS: Lisinopril 10 MG TAB PO SCH (09:21)
[2019-10-12] MEDS: Ondansetron PF 4 MG/2 ML Vial IVP PRN (09:26)
[2019-10-12] MEDS: Famotidine/PF 20 mg/2ml Vial SLOW IVP SCH ×2 (09:26→20:21)
[2019-10-12] MEDS ORDERED: Lisinopril 10 MG TAB PO SCH (10:00)
[2019-10-12] MEDS: Morphine 4 MG/ML VIAL IV PRN (11:06)
--- NOTE | 2019-10-12 11:41 | PRG ---
DATE OF SERVICE: 10/12/2019 SUBJECTIVE: The patient was started on clear liquids. She had a very small bowel movement and a small amount of flatus. She started vomiting. She has been vomiting all night. Nothing further out of her bottom. OBJECTIVE: VITAL SIGNS: Temperature 98.5, pulse 93, blood pressure 170/79. GENERAL: She is awake, alert. She has an NG tube in now, it has put out about 500 of dark green fluid. ABDOMEN: Rare bowel sounds. The incision looks very healthy, granulating well. LABORATORY DATA: White count 5.4, H and H of 8.7 and 25, platelet count 209. Electrolytes; BUN of 22, glucose 202. ASSESSMENT: Postoperative ileus expected. PLAN: Continue NG suction, IV fluids, and TPN. Job ID: [id number]
[2019-10-12] MEDS: Lactated Ringer's 1,000 ML IV SCH ×2 (12:38→21:10)
--- NOTE | 2019-10-12 12:38 | RAD ---
Chest AP view INDICATION: NG tube placement COMPARISON: October 04, 2019 FINDINGS: Lungs: The lungs are clear. Lung apices are excluded. Cardiac silhouette: Stable mild cardiomegaly Pulmonary vasculature: Normal Pleural spaces: No pleural effusion or pneumothorax is demonstrated. Upper abdomen: Gastric catheter projects in the region of the gastric body. There are numerous surgi niharika clips within the upper abdomen. There is a right-sided PICC line in place projecting in region of SVC which is new from the prior exam. Osseous structures: No acute osseous abnormality. Additional findings: None. IMPRESSION: Gastric catheter projects in the region of the gastric body. New right sided PICC line. Limitations i n exam as above.
[2019-10-12] MEDS: Multivitamins, Adult 10 ML, Multitrace-5 5 ML in D15W-AA 5% with Lytes 2,000 ML, Fat Em... IV SCH (14:50)
[2019-10-12] MEDS: Gabapentin 300 MG CAP PO SCH (20:21)
[2019-10-12] MEDS ORDERED: Melatonin 3 MG TAB PO PRN (22:36)
[2019-10-13] MEDS: traMADol HCl 50 MG TAB PO SCH ×4 (03:41→21:01)
[2019-10-13] MEDS: Acetaminophen 500 MG TAB PO SCH ×4 (03:42→21:01)
[2019-10-13] MEDS: traMADol HCl 50 MG TAB PO PRN ×3 (03:43→21:02)
[2019-10-13] MEDS: Lactated Ringer's 1,000 ML IV SCH ×3 (03:44→21:03)
[2019-10-13] MEDS: hydrALAZINE 20 MG/ML VIAL SLOW IVP PRN ×2 (04:22→21:00)
[2019-10-13 05:45] LABS: ALT (SGPT) 14 U/L (8-55); AST (SGOT) 12 U/L (5-34); Albumin 2.4 g/dL (3.4-4.8); Alkaline Phosphatase 57 U/L (40-110); Anion Gap 8 mmol/L (10-20); BUN (Urea Nitrogen) 18 mg/dL (9.8-20.1); Bilirubin, Total 0.3 mg/dL (0.2-1.2); Calc. Creatinine Clearance 92 mL/min (70-130); Calcium 8.3 mg/dL (7.8-10.44); Carbon Dioxide 30 mmol/L (23-31); Cardiac Risk 3.3 (Less than 4.5); Chloride 104 mmol/L (98-107); Cholesterol 76 mg/dl (< 200 Desired); Estimated GFR-MDRD 85; Globulin 2.7 g/dL (2.4-3.5); Glucose 64 mg/dL (83-110); HDL Cholesterol 23 mg/dL (>60 Neg Risk); LDL Cholesterol, Calculated 39 mg/dL; Magnesium 1.8 mg/dL (1.6-2.6); Phosphorus 3.3 mg/dL (2.3-4.7); Potassium 3.3 mmol/L (3.5-5.1); Protein, Total 5.1 g/dL (6.0-8.3); Sodium 139 mmol/L (136-145); Triglycerides 68 mg/dL (Less than 150)
--- NOTE | 2019-10-13 06:20 | PDOC.FM ---
- Subjective Subjective: Overnight had episode of increased abd pain, relieved with pain meds, and now improved. Still with moderate nausea. NG tube placed yesterday and placed back NPO after not tolerating clears. Unsure if passing flatus, states may have had one small BM in past 24 hours. Voiding well. No fever/chills, CP, SOB. - Objective MAR Reviewed: Yes Vital Signs & Weight: Vital Signs (12 hours) Temp Pulse Resp BP BP Pulse Ox 10/13/19 04:22 88 172/70 H 10/13/19 04:13 98.2 F 88 18 172/70 H 98 10/12/19 23:41 98.1 F 88 18 156/74 H 97 10/12/19 21:05 163/65 H 10/12/19 20:48 98.1 F 94 18 176/74 H 100 Weight Admit Weight 79.832 kg Weight 80.24 kg I&O: 10/11/19 10/12/19 10/13/19 06:59 06:59 06:59 Intake Total 2420 2325 Output Total 600 2000 Balance 1820 325 Result Diagrams: 10/12/19 06:10 10/13/19 05:00 Phys Exam - Physical Examination Constitutional: NAD (resting comfortably, in good spirits) HEENT: moist MMs NG tube in placed Neck: supple Respiratory: no wheezing, no rales, no rhonchi, clear to auscultation bilateral Cardiovascular: RRR, no rub 3/6 QUE Gastrointestinal: soft, no distention, positive bowel sounds (decreased) appropriately tender to palpation. incision c/d/i, wound vac in placed Musculoskeletal: no edema Neurological: non-focal, moves all 4 limbs Psychiatric: normal affect, A&O x 3 Dx/Plan (1) SBO (small bowel obstruction) Code(s): K56.609 - UNSP INTESTNL OBST, UNSP TO PARTIAL VERSUS COMPLETE OBST Status: Acute (2) DM II (diabetes mellitus, type II), controlled Code(s): E11.9 - TYPE 2 DIABETES MELLITUS WITHOUT COMPLICATIONS Status: Chronic (3) HTN (hypertension) Code(s): I10 - ESSENTIAL (PRIMARY) HYPERTENSION Status: Chronic - Plan Plan: 74 y/o F with a pmhx of DM2, HTN, multiple abdominal surg admitted for SBO now POD exlap. #SBO, POD #8 - Hx of hysterectomy, cholcystectomy and colectomy with J pouch. Previous SBO x5 usually relieved with SB follow through - Small bowel follow through 10/04: mild-moderate obstruction, patient taken to OR 10/04. - Gen surgery, Dr. Ramon consulted from ED, apprec recs and assistance - s/p Levaquin and flagyl, nova removed 10/08, ng tube removed 10/07 but replaced on 10/11 - Advanced to clear liquid initially but did not tolerating diet, back to NPO yesterday with IVF - hypoactive BS, small BM, minimal flatus, nausea still present, will cont bowel rest and monitor sxs - Patient has PICC line, continue LR @ 125cc/hr and TPN - Continue working with PT/OT, encourage ambulation - zofran and phenergan for nausea. Morphine prn pain #Anemia - B12 and folate WNL, suspect anemia of chronic disease - Stable, Hb 7.8, no s/s of acute blood loss - likely 2/2 nutritional and chronic disease #Hypophosphatemia, resolved -will continue to monitor #Hypokalemia -potassium 3.4 yesterday, replaced and monitoring #Hx of Ulcerative Colitis requiring total colectomy with J Pouch. - Pt does not have UC symptoms since colectomy. #Hx of DM II - diabetic retinopathy - Holding PO medications while NPO. - AC/HS accuchecks, SSI - increased to 40u lantus yesterday and titrate as appropriate #Hx of HTN - restarted home lisinopril yesterday, BP still elevated, consider increased dose - PRN hydralazine for BP management while NPO #Hx of breast CA - aware Code status: Full code Diet: NPO IVF: LR @ 125cc/hr DVT ppx: SCD's Dispo: Admitted to inpt for SBO. Gen surg, Dr. Ramon, consulted, appreciate recs. Patient taken to OR 10/04. Continue TPN and LR through PICC. Back to bowel rest with NG, fluids, and TPN, apprec surg recs and assistance. Addendum - Attending - Attending Attestation Date/Time: 10/13/19 2501 I personally evaluated the patient and discussed the management with Dr. Beebe. I agree with the History, Examination, Assessment and Plan documented above with any addition or exceptions noted below. Patient had vomiting and de-escalation of diet yesterday. Back on NGT and feels improved. Continue TPN, awaiting surgery recs regarding her prolonged ileus. BP control as NPO again and not receiving Lisinopril.
[2019-10-13] MEDS ORDERED: Chloraseptic Spray 180 ml Bottle PO PRN (06:56)
[2019-10-13] MEDS: Famotidine/PF 20 mg/2ml Vial SLOW IVP SCH ×2 (08:35→21:00)
[2019-10-13] MEDS: Lisinopril 20 MG TAB PO SCH (08:35)
[2019-10-13] MEDS: Famotidine 20 MG TAB PO SCH ×2 (08:35→21:02)
[2019-10-13] MEDS: Enoxaparin Sodium 40 MG/0.4 ML SYRINGE SC SCH (08:45)
[2019-10-13] MEDS: Insulin Glargine 40 UNITS in Pre-Filled Syringe 1 EACH SC SCH (08:49)
[2019-10-13] MEDS ORDERED: Morphine 4 MG/ML VIAL SLOW IVP PRN (11:49)
[2019-10-13] MEDS ORDERED: Morphine 2 MG/ML SYRINGE SLOW IVP PRN (11:49)
--- NOTE | 2019-10-13 12:04 | PRG ---
DATE OF SERVICE: 10/13/2019 SUBJECTIVE: The patient feels a little better. She is still having some nausea. Moderate pain. OBJECTIVE: VITAL SIGNS: Temperature is 98.1, pulse 90, and blood pressure 183/75. GENERAL: She is awake, alert. ABDOMEN: Really no significant tenderness. The incisions healing well. Her electrolytes are fine. ASSESSMENT: Ileus after extensive lysis of adhesions. PLAN: Continue TPN, NG suction, and we will check a KUB. Job ID: [id number]
[2019-10-13] MEDS: Morphine 4 MG/ML VIAL IV PRN (14:45)
[2019-10-13] MEDS: Ondansetron PF 4 MG/2 ML Vial IVP PRN (14:50)
--- NOTE | 2019-10-13 15:47 | RAD ---
ABDOMEN ONE VIEW: 10/13/19 HISTORY: Follow-up small bowel obstruction. FINDINGS: Extensive surgical clips in the pelvis. NG tube in place. There are several loops of borderline sized small bowel which could represent some minimal focal ileus. NG tube is in place. No evidence for new significant large or small bowel dilatation. IMPRESSION: Improved appearance from prior study. Extensive postoperative change. There are some persistent air fluid levels and borderline sized small bowel. POS: [facility]
[2019-10-13] MEDS: MULTIVITAMINS IV SCH (16:10)
[2019-10-13] MEDS: [UNRECOGNIZED DRUG - OTHER] IV SCH (16:10)
[2019-10-13] MEDS: TRACE ELEMENT IV SCH (16:10)
[2019-10-13] MEDS: Gabapentin 300 MG CAP PO SCH (21:00)
[2019-10-14] MEDS: traMADol HCl 50 MG TAB PO SCH ×4 (03:46→21:16)
[2019-10-14] MEDS: Acetaminophen 500 MG TAB PO SCH ×4 (03:46→21:15)
[2019-10-14] MEDS: Lactated Ringer's 1,000 ML IV SCH ×4 (03:46→21:21)
[2019-10-14] MEDS: traMADol HCl 50 MG TAB PO PRN ×2 (03:47→09:07)
[2019-10-14 06:03] LABS: INR-International Normal Ratio 1.1; PTT 36.5 SEC (22.9-36.1); Prothrombin Time 14.2 SEC (12.0-14.7)
--- NOTE | 2019-10-14 06:38 | PDOC.FM ---
- Subjective Subjective: Doing well this morning, no acute events overnight. States nausea has resolved and pain well-controlled with medications. Still no flatus and no BM. Voiding without difficulty and ambulating well. No fever/chills, CP, SOB. In good spirits this morning and no acute concerns or complaints. - Objective MAR Reviewed: Yes Vital Signs & Weight: Vital Signs (12 hours) Temp Pulse Resp BP BP Pulse Ox 10/14/19 04:00 98.3 F 89 16 166/76 H 97 10/13/19 23:29 98.2 F 92 18 155/76 H 97 10/13/19 21:00 86 175/70 H 10/13/19 20:38 98.2 F 86 18 175/70 H 96 Weight Admit Weight 79.832 kg Weight 80.24 kg I&O: 10/12/19 10/13/19 10/14/19 06:59 06:59 06:59 Intake Total 2420 4785 Output Total 600 2750 500 Balance 1820 2035 -500 Result Diagrams: 10/12/19 06:10 10/13/19 05:00 Phys Exam - Physical Examination Constitutional: NAD (resting comfortably, good spirits, well-developed) HEENT: moist MMs NG tube in place Respiratory: no wheezing, no rales, no rhonchi, clear to auscultation bilateral Cardiovascular: RRR, no rub 3/6 QUE Gastrointestinal: soft, non-tender, no distention, positive bowel sounds Ex lap incision c/d/i, no erythema Neurological: non-focal, moves all 4 limbs Psychiatric: normal affect, A&O x 3 Dx/Plan (1) SBO (small bowel obstruction) Code(s): K56.609 - UNSP INTESTNL OBST, UNSP TO PARTIAL VERSUS COMPLETE OBST Status: Acute (2) DM II (diabetes mellitus, type II), controlled Code(s): E11.9 - TYPE 2 DIABETES MELLITUS WITHOUT COMPLICATIONS Status: Chronic (3) HTN (hypertension) Code(s): I10 - ESSENTIAL (PRIMARY) HYPERTENSION Status: Chronic - Plan Plan: 74 y/o F with a pmhx of DM2, HTN, multiple abdominal surg admitted for SBO now POD exlap. #SBO, POD #9 - Hx of hysterectomy, cholcystectomy and colectomy with J pouch. Previous SBO x5 usually relieved with SB follow through - Small bowel follow through 10/04: mild-moderate obstruction, patient taken to OR 10/04. - Gen surgery, Dr. Ramon consulted from ED, apprec recs and assistance - s/p Levaquin and flagyl, nova removed 10/08, ng tube removed 10/07 but replaced on 10/11 - Advanced to clear liquid initially but did not tolerating diet, back to NPO on 10/11 with IVF - normoacitve BS, this AM, currently no flatus or BM, nausea improved with NG, will cont bowel rest and monitor sxs to adv when appropriate - KUB - improved, some air/fluid levels with borderline bowel size - Patient has PICC line, continue LR @ 125cc/hr and TPN - Continue working with PT/OT, encourage ambulation - zofran and phenergan for nausea. Morphine prn pain - cont to await gen surg recs, apprec assistance #Anemia - B12 and folate WNL, suspect anemia of chronic disease - Stable, Hb 7.8, no s/s of acute blood loss - likely 2/2 nutritional and chronic disease #Hypophosphatemia, resolved -will continue to monitor #Hypokalemia -potassium 3.4 yesterday, replaced with TPN adjustments and monitoring #Hx of Ulcerative Colitis requiring total colectomy with J Pouch. - Pt does not have UC symptoms since colectomy. #Hx of DM II - diabetic retinopathy - Holding PO medications while NPO. - AC/HS accuchecks, SSI - increased to 40u lantus this hospitalization with BG at goal, cont to monitor #Hx of HTN - restarted home lisinopril, BP still elevated, consider increased dose - PRN hydralazine for BP management while NPO #Hx of breast CA - aware Code status: Full code Diet: NPO IVF: LR @ 125cc/hr DVT ppx: SCD's Dispo: Admitted to inpt for SBO. Gen surg, Dr. Ramon, consulted, appreciate recs. Patient taken to OR 10/04. Continue TPN and LR through PICC. Back to bowel rest with NG, fluids, and TPN, apprec surg recs and assistance. Addendum - Attending - Attending Attestation Date/Time: 10/14/19 1121 I personally evaluated the patient and discussed the management with Dr. Beebe. I agree with the History, Examination, Assessment and Plan documented above with any addition or exceptions noted below. Patient reports feeling improved. Continues on NGT suction, and he had a BM today. Awaiting surgery recs regarding advancing diet and removal of NGT. Plan for dispo is [facility].
[2019-10-14] MEDS: Insulin Glargine 40 UNITS in Pre-Filled Syringe 1 EACH SC SCH (09:06)
[2019-10-14] MEDS: Famotidine/PF 20 mg/2ml Vial SLOW IVP SCH ×2 (09:07→21:18)
[2019-10-14] MEDS: Lisinopril 20 MG TAB PO SCH (09:07)
[2019-10-14] MEDS: Enoxaparin Sodium 40 MG/0.4 ML SYRINGE SC SCH (09:12)
[2019-10-14] MEDS: Famotidine 20 MG TAB PO SCH ×2 (09:14→21:16)
[2019-10-14] MEDS: Morphine 4 MG/ML VIAL IV PRN (09:32)
[2019-10-14] MEDS ORDERED: Lisinopril 10 MG TAB PO SCH (10:15)
--- NOTE | 2019-10-14 10:42 | PRG ---
DATE OF SERVICE: 10/14/2019 SUBJECTIVE: The patient is doing very well. She had a bowel movement. She is not having any nausea. OBJECTIVE: Her temperature is 98.1, pulse 85, blood pressure 170/70. She looks great. Her NG output has diminished significantly. Urinating well. ASSESSMENT: Doing well. PLAN: Discontinue NG. Ambulate. Job ID: [id number]
[2019-10-14] MEDS ORDERED: Lactated Ringer's 1,000 ML IV SCH (12:15)
[2019-10-14] MEDS: Ondansetron PF 4 MG/2 ML Vial IVP PRN (15:03)
[2019-10-14] MEDS: MULTIVITAMINS IV SCH (15:04)
[2019-10-14] MEDS: TRACE ELEMENT IV SCH (15:04)
[2019-10-14] MEDS: [UNRECOGNIZED DRUG - OTHER] IV SCH (15:04)
[2019-10-14] MEDS: Gabapentin 300 MG CAP PO SCH (21:16)
[2019-10-15] MEDS: Lactated Ringer's 1,000 ML IV SCH ×2 (02:15→15:42)
[2019-10-15] MEDS: Acetaminophen 500 MG TAB PO SCH ×4 (03:41→21:21)
[2019-10-15] MEDS: traMADol HCl 50 MG TAB PO SCH ×4 (03:41→21:20)
[2019-10-15] MEDS: HumaLOG 300 UNITS/3 ML VIAL SC PRN (06:01)
--- NOTE | 2019-10-15 06:25 | PDOC.FM ---
- Subjective Subjective: Doing well this morning, no acute events overnight. States had 1 BM yesterday but has since not passed flatus. Mild nausea but improved. NG pulled yesterday with no episodes of emesis. Pain well-controlled. Ambulating during day, using incentive spirometer. Eager to adv her diet and cont to improved. No fever/ chills, CP, SOB. - Objective MAR Reviewed: Yes Vital Signs & Weight: Vital Signs (12 hours) Temp Pulse Resp BP BP Pulse Ox 10/15/19 03:11 98.1 F 88 18 165/75 H 96 10/14/19 23:16 98.1 F 89 16 160/72 H 94 L 10/14/19 20:15 95 10/14/19 20:09 98.2 F 88 16 166/71 H 95 Weight Admit Weight 79.832 kg Weight 80.24 kg I&O: 10/13/19 10/14/19 10/15/19 06:59 06:59 06:59 Intake Total 4745 2672 Output Total 2750 500 Balance 20342 Result Diagrams: 10/12/19 06:10 10/13/19 05:00 Phys Exam - Physical Examination Constitutional: NAD (resting comfortably, good spirits) HEENT: moist MMs Neck: supple Respiratory: no wheezing, no rales, no rhonchi, clear to auscultation bilateral Cardiovascular: RRR, no rub 4/6 systolic ejection murmur Gastrointestinal: soft, non-tender, no distention, positive bowel sounds Incision c/d/i Musculoskeletal: no edema Neurological: moves all 4 limbs Psychiatric: normal affect, A&O x 3 Dx/Plan (1) SBO (small bowel obstruction) Code(s): K56.609 - UNSP INTESTNL OBST, UNSP TO PARTIAL VERSUS COMPLETE OBST Status: Acute (2) DM II (diabetes mellitus, type II), controlled Code(s): E11.9 - TYPE 2 DIABETES MELLITUS WITHOUT COMPLICATIONS Status: Chronic (3) HTN (hypertension) Code(s): I10 - ESSENTIAL (PRIMARY) HYPERTENSION Status: Chronic - Plan Plan: 74 y/o F with a pmhx of DM2, HTN, multiple abdominal surg admitted for SBO now POD exlap. #SBO, POD #10 - Hx of hysterectomy, cholcystectomy and colectomy with J pouch. Previous SBO x5 usually relieved with SB follow through - Small bowel follow through 10/04: mild-moderate obstruction, patient taken to OR 10/04. - Gen surgery, Dr. Ramon consulted from ED, apprec recs and assistance - s/p Levaquin and flagyl, nova removed 10/08, ng tube removed 10/07 but replaced on 10/11 and removed 10/13 - Advanced to clear liquid initially but did not tolerating diet, back to NPO on 10/11 with IVF - normoacitve BS this AM, had 1 small BM with flatus yesterday, since has no further flatus or BM. After NG removed only mild nausea and no emesis - KUB - improved, some air/fluid levels with borderline bowel size - Patient has PICC line, continue LR @ 125cc/hr and TPN - Continue working with PT/OT, encourage ambulation - zofran and phenergan for nausea. Morphine prn pain - cont to await gen surg recs for adv of diet and management, apprec assistance - Pt approved for [place] swing bed for placement once medically cleared #Anemia - B12 and folate WNL, suspect anemia of chronic disease - Stable, Hb 7.8, no s/s of acute blood loss #Hx of Ulcerative Colitis requiring total colectomy with J Pouch. - Pt does not have UC symptoms since colectomy. - currently receiving nutrition through TPN, will monitor and correct lytes as appropriate #Hx of DM II - diabetic retinopathy - Holding PO medications while NPO. - AC/HS accuchecks, SSI - increased to 40u lantus this hospitalization with BG at goal, cont to monitor #Hx of HTN - restarted home lisinopril, BP still elevated, increased dose to 30mg daily yesterday, will cont to monitor and titrate meds as necessary - PRN hydralazine #Hx of breast CA - aware Code status: Full code Diet: NPO IVF: LR @ 125cc/hr DVT ppx: SCD's Dispo: Admitted to inpt for SBO. Gen surg, Dr. Ramon, consulted, appreciate recs. Patient taken to OR 10/04. Continue TPN and LR through PICC. Clinically improving slowly, await gen surg recs. Placement to [place] swing bed when appropriate. Addendum - Attending - Attending Attestation Date/Time: 10/15/19 8219 I personally evaluated the patient and discussed the management with Dr. Bebee. I agree with the History, Examination, Assessment and Plan documented above with any addition or exceptions noted below.
[2019-10-15] MEDS ORDERED: Lisinopril 20 MG TAB PO SCH (09:00)
[2019-10-15] MEDS: Famotidine/PF 20 mg/2ml Vial SLOW IVP SCH ×2 (09:14→21:23)
[2019-10-15] MEDS: Lisinopril 10 MG TAB PO SCH (09:21)
[2019-10-15] MEDS: Famotidine 20 MG TAB PO SCH ×2 (09:22→21:20)
[2019-10-15] MEDS: Enoxaparin Sodium 40 MG/0.4 ML SYRINGE SC SCH (09:23)
[2019-10-15] MEDS: Insulin Glargine 40 UNITS in Pre-Filled Syringe 1 EACH SC SCH (09:27)
--- NOTE | 2019-10-15 13:52 | PRG ---
DATE OF SERVICE: 10/15/2019 SUBJECTIVE: She is feeling okay. Pain is okay. Occasional nausea, very little out her bottom, and a little bit gas. OBJECTIVE: ABDOMEN: About the same. SKIN: Wound looks good. ASSESSMENT: Slow recovery of ileus. PLAN: We will just keep her on ice chips for now. Job ID: [id number]
[2019-10-15] MEDS: TRACE ELEMENT IV SCH (15:43)
[2019-10-15] MEDS: MULTIVITAMINS IV SCH (15:43)
[2019-10-15] MEDS: [UNRECOGNIZED DRUG - OTHER] IV SCH (15:43)
[2019-10-15] MEDS: hydrALAZINE 20 MG/ML VIAL SLOW IVP PRN (18:40)
[2019-10-15] MEDS: Ondansetron PF 4 MG/2 ML Vial IVP PRN (18:43)
[2019-10-15] MEDS: Gabapentin 300 MG CAP PO SCH (21:20)
[2019-10-16] MEDS: Lactated Ringer's 1,000 ML IV SCH ×4 (00:24→15:26)
[2019-10-16] MEDS: Ondansetron PF 4 MG/2 ML Vial IVP PRN ×2 (03:02→20:24)
[2019-10-16] MEDS: Acetaminophen 500 MG TAB PO SCH ×4 (03:40→21:36)
[2019-10-16] MEDS: traMADol HCl 50 MG TAB PO SCH ×4 (03:40→21:36)
--- NOTE | 2019-10-16 06:02 | PDOC.FM ---
- Subjective Subjective: Doing well this morning, in good spirits. Did have 1 episode of vomiting yesterday, mild nausea but controlled with meds. States may have had 1 episode of flatus overnight, no BM. She is eager to ambulate frequently this morning and spend time in bedside chair. Denies any fever/chills, CP, SOB. Abd pain improved and only mild, controlled with meds. - Objective MAR Reviewed: Yes Vital Signs & Weight: Vital Signs (12 hours) Temp Pulse Resp BP Pulse Ox 10/16/19 04:56 98.4 F 92 16 160/79 H 94 L 10/16/19 00:59 98.5 F 85 16 165/78 H 95 10/15/19 20:25 98 10/15/19 19:13 98.4 F 84 16 148/75 H 98 Weight Admit Weight 79.832 kg Weight 80.24 kg I&O: 10/14/19 10/15/19 10/16/19 06:59 06:59 06:59 Intake Total 2672 175 Output Total 500 Balance 2172 175 Result Diagrams: 10/12/19 06:10 10/16/19 06:17 Phys Exam - Physical Examination Constitutional: NAD (resting comfortably, good spirits, motivated to get better) HEENT: moist MMs Neck: supple Respiratory: no wheezing, no rales, no rhonchi, clear to auscultation bilateral Cardiovascular: RRR, no rub 4/6 QUE Gastrointestinal: soft, no distention, positive bowel sounds midline incision c/d/i, appropraite TTP Musculoskeletal: no edema Neurological: moves all 4 limbs Psychiatric: normal affect, A&O x 3 Dx/Plan (1) SBO (small bowel obstruction) Code(s): K56.609 - UNSP INTESTNL OBST, UNSP TO PARTIAL VERSUS COMPLETE OBST Status: Acute (2) DM II (diabetes mellitus, type II), controlled Code(s): E11.9 - TYPE 2 DIABETES MELLITUS WITHOUT COMPLICATIONS Status: Chronic (3) HTN (hypertension) Code(s): I10 - ESSENTIAL (PRIMARY) HYPERTENSION Status: Chronic - Plan Plan: 74 y/o F with a pmhx of DM2, HTN, multiple abdominal surg admitted for SBO now POD exlap. #SBO, POD #11 - Hx of hysterectomy, cholcystectomy and colectomy with J pouch. Previous SBO x5 usually relieved with SB follow through - Small bowel follow through 10/04: mild-moderate obstruction, patient taken to OR 10/04. - Gen surgery, Dr. Ramon consulted from ED, apprec recs and assistance - s/p Levaquin and flagyl, nova removed 10/08, ng tube removed 10/07 but replaced on 10/11 and removed 10/13 - Advanced to clear liquid initially but did not tolerating diet, back to NPO on 10/11 with IVF - normoactive BS this AM, 1 episode vomiting and possible 1 episode flatus overnight. Encourage ambulation this AM, monitor bowel function - KUB - improved, some air/fluid levels with borderline bowel size - Patient has PICC line, continue LR @ 125cc/hr and TPN - Continue working with PT/OT, encourage ambulation - zofran and phenergan for nausea. Morphine prn pain - cont to await gen surg recs for adv of diet and management, apprec assistance - Pt approved for [place] swing bed for placement once medically cleared - AM CBC and CMP pending #Anemia - B12 and folate WNL, suspect anemia of chronic disease - Stable, Hb 7.8, no s/s of acute blood loss #Hx of Ulcerative Colitis requiring total colectomy with J Pouch. - Pt does not have UC symptoms since colectomy. - currently receiving nutrition through TPN, will monitor and correct lytes as appropriate #Hx of DM II - diabetic retinopathy - Holding PO medications while NPO. - AC/HS accuchecks, SSI - increased to 40u lantus this hospitalization with BG at goal, cont to monitor #Hx of HTN - restarted home lisinopril, increased dose to 30mg daily with continued elevated BP, will add HCTZ this AM and monitor BP. - PRN hydralazine #Hx of breast CA - aware Code status: Full code Diet: NPO IVF: LR @ 125cc/hr DVT ppx: SCD's Dispo: Admitted to inpt for SBO. Gen surg, Dr. Ramon, consulted, appreciate recs. Patient taken to OR 10/04. Continue TPN and LR through PICC. Clinically improving slowly, await gen surg recs. Placement to [place] swing bed when appropriate. Addendum - Attending - Attending Attestation Date/Time: 10/16/19 1036 I personally evaluated the patient and discussed the management with Dr. Beebe. I agree with the History, Examination, Assessment and Plan documented above with any addition or exceptions noted below.
[2019-10-16] MEDS: HumaLOG 300 UNITS/3 ML VIAL SC PRN ×2 (06:08→18:49)
[2019-10-16 06:58] LABS: Albumin 2.5 g/dL (3.4-4.8); Anion Gap 10 mmol/L (10-20); BUN (Urea Nitrogen) 20 mg/dL (9.8-20.1); Bilirubin, Total 0.3 mg/dL (0.2-1.2); Calc. Creatinine Clearance 92 mL/min (70-130); Calcium 8.3 mg/dL (7.8-10.44); Carbon Dioxide 29 mmol/L (23-31); Chloride 103 mmol/L (98-107); Estimated GFR-MDRD 85; Globulin 2.9 g/dL (2.4-3.5); Glucose 171 mg/dL (83-110); Potassium 4.1 mmol/L (3.5-5.1); Protein, Total 5.4 g/dL (6.0-8.3); Sodium 138 mmol/L (136-145)
[2019-10-16 06:59] LABS: ALT (SGPT) 15 U/L (8-55); AST (SGOT) 18 U/L (5-34); Alkaline Phosphatase 83 U/L (40-110); Magnesium 1.8 mg/dL (1.6-2.6); Phosphorus 3.7 mg/dL (2.3-4.7)
[2019-10-16] MEDS: Hydrochlorothiazide 25 MG TAB PO SCH (09:14)
[2019-10-16] MEDS: Famotidine/PF 20 mg/2ml Vial SLOW IVP SCH ×2 (09:14→20:24)
[2019-10-16] MEDS: Lisinopril 10 MG TAB PO SCH (09:16)
[2019-10-16] MEDS: Famotidine 20 MG TAB PO SCH ×2 (09:16→20:36)
--- NOTE | 2019-10-16 10:04 | PRG ---
DATE OF SERVICE: 10/16/2019 SUBJECTIVE: The patient vomited quite a bit last night, but then had a large bowel movement. She says she feels about the same. OBJECTIVE: VITAL SIGNS: On exam, her temperature is 98.2, pulse 89, and blood pressure 178/79. GENERAL: She is awake, alert. She looks pretty good, in no apparent distress. ABDOMEN: Has few bowel sounds. The wound is healing well. LABORATORY DATA: Her electrolytes look good. ASSESSMENT: Prolonged ileus after extensive lysis of adhesions, not unexpected. PLAN: Continue TPN. Very slow advancement. Job ID: [id number]
[2019-10-16] MEDS: Enoxaparin Sodium 40 MG/0.4 ML SYRINGE SC SCH (11:01)
[2019-10-16] MEDS: Insulin Glargine 40 UNITS in Pre-Filled Syringe 1 EACH SC SCH (11:02)
[2019-10-16] MEDS: MULTIVITAMINS IV SCH (15:17)
[2019-10-16] MEDS: [UNRECOGNIZED DRUG - OTHER] IV SCH (15:17)
[2019-10-16] MEDS: TRACE ELEMENT IV SCH (15:17)
[2019-10-16] MEDS: hydrALAZINE 20 MG/ML VIAL SLOW IVP PRN (20:25)
[2019-10-16] MEDS: Gabapentin 300 MG CAP PO SCH (20:36)
[2019-10-17] MEDS: Promethazine HCl 25 MG/ML VIAL IM PRN (00:52)
[2019-10-17] MEDS: Lactated Ringer's 1,000 ML IV SCH ×3 (00:55→20:42)
[2019-10-17] MEDS: traMADol HCl 50 MG TAB PO SCH ×4 (03:16→21:07)
[2019-10-17] MEDS: Acetaminophen 500 MG TAB PO SCH ×4 (03:16→21:05)
--- NOTE | 2019-10-17 05:30 | PDOC.FM ---
- Subjective Subjective: Overnight has been having small, loose BM as well as passing flatus; however has had increased nausea with episodes of bilious vomiting. Pt pain is well- controlled. Pt is eager to speak with Gen Surg team this morning regarding plan of care. Ambulating very frequently. No CP, fever,chills, dyspnea. - Objective MAR Reviewed: Yes Vital Signs & Weight: Vital Signs (12 hours) Temp Pulse Resp BP BP Pulse Ox 10/17/19 03:14 98.6 F 95 16 158/79 H 98 10/16/19 23:20 98.3 F 89 14 165/75 H 94 L 10/16/19 20:25 88 186/85 H 10/16/19 20:00 93 L 10/16/19 19:30 98.5 F 88 16 186/85 H 93 L Weight Admit Weight 79.832 kg Weight 80.24 kg I&O: 10/15/19 10/16/19 10/17/19 06:59 06:59 06:59 Intake Total 175 90 Output Total 300 Balance 175 -210 Result Diagrams: 10/12/19 06:10 10/16/19 06:17 Phys Exam - Physical Examination Constitutional: NAD (resting comfortably however had recent episode of emesis) HEENT: moist MMs Neck: supple Respiratory: no wheezing, no rales, no rhonchi, clear to auscultation bilateral Cardiovascular: RRR, no rub 3/6 QUE Gastrointestinal: soft, non-tender, no distention, positive bowel sounds Musculoskeletal: no edema Neurological: moves all 4 limbs Psychiatric: normal affect, A&O x 3 Dx/Plan (1) SBO (small bowel obstruction) Code(s): K56.609 - UNSP INTESTNL OBST, UNSP TO PARTIAL VERSUS COMPLETE OBST Status: Acute (2) DM II (diabetes mellitus, type II), controlled Code(s): E11.9 - TYPE 2 DIABETES MELLITUS WITHOUT COMPLICATIONS Status: Chronic (3) HTN (hypertension) Code(s): I10 - ESSENTIAL (PRIMARY) HYPERTENSION Status: Chronic - Plan Plan: 74 y/o F with a pmhx of DM2, HTN, multiple abdominal surg admitted for SBO now POD exlap. #SBO, POD #12 with prolonged ileus - Hx of hysterectomy, cholcystectomy and colectomy with J pouch. Previous SBO x5 usually relieved with SB follow through - Small bowel follow through 10/04: mild-moderate obstruction, patient taken to OR 10/04. - Gen surgery, Dr. Ramon consulted from ED, apprec recs and assistance - s/p Levaquin and flagyl, nova removed 10/08, ng tube removed 10/07 but replaced on 10/11 and removed 10/13 - Advanced to clear liquid initially but did not tolerating diet, back to NPO on 10/11 with IVF - normoactive BS this AM, episodes of vomiting but with small BM and flatus. Encourage ambulation this AM, monitor bowel function - KUB - improved, some air/fluid levels with borderline bowel size - Patient has PICC line, continue LR @ 125cc/hr and TPN - Continue working with PT/OT, encourage ambulation - zofran and phenergan for nausea. Morphine prn pain - cont to await gen surg recs for adv of diet and management, apprec assistance - Pt approved for [place] swing bed for placement once medically cleared #Anemia - B12 and folate WNL, suspect anemia of chronic disease - Stable, Hb 7.8, no s/s of acute blood loss #Hx of Ulcerative Colitis requiring total colectomy with J Pouch. - Pt does not have UC symptoms since colectomy. - currently receiving nutrition through TPN, will monitor and correct lytes as appropriate #Hx of DM II - diabetic retinopathy - Holding PO medications while NPO. - AC/HS accuchecks, SSI - increased to 40u lantus this hospitalization with BG at goal, cont to monitor #Hx of HTN - restarted home lisinopril, increased dose to 30mg daily with continued elevated BP, added HCTZ 12.5 yesterday, will cont to monitor, consider increased dose if needed - PRN hydralazine #Hx of breast CA - aware Code status: Full code Diet: NPO IVF: LR @ 125cc/hr DVT ppx: SCD's Dispo: Admitted to inpt for SBO. Gen surg, Dr. Ramon, consulted, appreciate recs. Patient taken to OR 10/04. Continue TPN and LR through PICC. Clinically improving slowly, await gen surg recs. Placement to [facility] swing bed when appropriate.
[2019-10-17] MEDS: Hydrochlorothiazide 25 MG TAB PO SCH (08:58)
[2019-10-17] MEDS: Lisinopril 10 MG TAB PO SCH (08:58)
[2019-10-17] MEDS: Famotidine/PF 20 mg/2ml Vial SLOW IVP SCH ×2 (08:59→20:53)
[2019-10-17] MEDS: Enoxaparin Sodium 40 MG/0.4 ML SYRINGE SC SCH (08:59)
[2019-10-17] MEDS: Famotidine 20 MG TAB PO SCH ×2 (09:06→20:53)
[2019-10-17] MEDS: Insulin Glargine 40 UNITS in Pre-Filled Syringe 1 EACH SC SCH (09:06)
--- NOTE | 2019-10-17 12:49 | PRG ---
DATE OF SERVICE: 10/17/[address] Please see note from Dr. Andrés Beebe, for which I agree. The patient was seen, evaluated, discussed, and examined with the residents by bedside. Here for small-bowel obstruction. Did have a bowel movement, but has still vomiting. On occasion, still has a kind of feel as bloated and some abdominal pain. Has been here now 13 days, postoperative day 11. She is on TPN, not really giving her any p.o. food or liquids at this point in time. No major changes, but still just extremely frustrated because she keeps vomiting. Wondering if this is normal or needs to be transferred, etc. Certainly, appreciate Surgery's recommendations on that and we will be following her for blood pressure and diabetes management and will have surgery and discussed her GI and abdominal issues with her to make those decisions. Job ID: [id number]
--- NOTE | 2019-10-17 12:50 | PRG ---
DATE OF SERVICE: 10/17/2019 SUBJECTIVE: Ms. Herrera is postoperative day #12 from exploratory laparotomy, lysis of adhesions performed by Dr. Ramon. She was admitted to the hospital on October 03. She apparently had extensive intraabdominal adhesions and had a prolonged postoperative ileus. Her last CBC was on October 11 and for several days in a row, these were essentially normal with moderate anemia, but a stable white blood cell count. She was started on TPN several days ago and remains on this. Her electrolytes yesterday were entirely normal as was her magnesium and phosphorus. Today, she has no complaints. She notes she has had a bowel movement today. She denies any nausea or vomiting. OBJECTIVE: VITAL SIGNS: Her temperature is 98.3, pulse 92, blood pressure 167/76. LUNGS: Clear to auscultation. ABDOMEN: Soft with a wound VAC on her midline incision. Bowel sounds are present and normoactive. ASSESSMENT: The patient is doing well. It appears that her ileus is resolving. I will begin clear liquids today. I cautioned her about progressing very slowly and stopping if she develops any nausea. Job ID: [id number]
[2019-10-17] MEDS: TRACE ELEMENT IV SCH (15:14)
[2019-10-17] MEDS: MULTIVITAMINS IV SCH (15:14)
[2019-10-17] MEDS: [UNRECOGNIZED DRUG - OTHER] IV SCH (15:14)
[2019-10-17] MEDS: Ondansetron PF 4 MG/2 ML Vial IVP PRN (20:44)
[2019-10-17] MEDS: Gabapentin 300 MG CAP PO SCH (20:50)
[2019-10-18] MEDS: Lactated Ringer's 1,000 ML IV SCH (04:32)
[2019-10-18] MEDS: hydrALAZINE 20 MG/ML VIAL SLOW IVP PRN ×2 (04:33→23:50)
[2019-10-18] MEDS: Acetaminophen 500 MG TAB PO SCH ×4 (04:36→22:12)
[2019-10-18] MEDS: traMADol HCl 50 MG TAB PO SCH ×4 (04:36→22:09)
--- NOTE | 2019-10-18 05:31 | PDOC.FM ---
- Subjective Subjective: Doing very well this morning, in very good spirits. Had multiple BM yesterday, continuing to pas flatus. No vomiting yesterday and nausea resolved. States pain has almost completely resolved as well. She is ambulating frequently, voiding without difficulty. No fever/chills, CP, SOB. She is tolerating clear liquid diet well without n/v. She states she was beginning to become depressed but her progress over the past 24 hrs has lifted her spirits. - Objective MAR Reviewed: Yes Vital Signs & Weight: Vital Signs (12 hours) Temp Pulse Resp BP BP Pulse Ox 10/18/19 04:33 92 171/72 H 10/18/19 03:35 97.7 F 92 16 171/72 H 94 L 10/17/19 23:37 98.1 F 86 16 167/76 H 96 10/17/19 20:09 98.4 F 84 16 164/76 H 95 Weight Admit Weight 79.832 kg Weight 80.24 kg I&O: 10/16/19 10/17/19 10/18/19 06:59 06:59 06:59 Intake Total 175 2725 30 Output Total 1100 Balance 175 1625 30 Result Diagrams: 10/12/19 06:10 10/16/19 06:17 Phys Exam - Physical Examination Constitutional: NAD (resting comfortably, good spirits) HEENT: moist MMs Neck: supple Respiratory: no wheezing, no rales, no rhonchi, clear to auscultation bilateral Cardiovascular: RRR, no rub 4/6 QUE Gastrointestinal: soft, non-tender, no distention, positive bowel sounds midline incision with wound vac, c/d/i Musculoskeletal: no edema Neurological: moves all 4 limbs Psychiatric: normal affect, A&O x 3 Dx/Plan (1) SBO (small bowel obstruction) Code(s): K56.609 - UNSP INTESTNL OBST, UNSP TO PARTIAL VERSUS COMPLETE OBST Status: Acute (2) DM II (diabetes mellitus, type II), controlled Code(s): E11.9 - TYPE 2 DIABETES MELLITUS WITHOUT COMPLICATIONS Status: Chronic (3) HTN (hypertension) Code(s): I10 - ESSENTIAL (PRIMARY) HYPERTENSION Status: Chronic - Plan Plan: 74 y/o F with a pmhx of DM2, HTN, multiple abdominal surg admitted for SBO now s /p exlap. #SBO, POD #13 with prolonged ileus - Hx of hysterectomy, cholcystectomy and colectomy with J pouch. Previous SBO x5 usually relieved with SB follow through - Small bowel follow through 10/04: mild-moderate obstruction, patient taken to OR 10/04. - Gen surgery, Dr. Ramon consulted from ED, apprec recs and assistance - s/p Levaquin and flagyl, nova removed 10/08, ng tube removed 10/07 but replaced on 10/11 and removed 10/13 - Unable to tolerated initial advancement of diet and back to bowel rest on 10/11 , over past 24 hours has had sx improvement with flatus, BM, and no n/v. Good Bowel sounds this AM. Advanced to clears and tolerating well. Encourage ambulation, clears, and monitor - KUB - improved, some air/fluid levels with borderline bowel size - Patient has PICC line, continue LR @ 125cc/hr and TPN - will wean as PO increases - Continue working with PT/OT, encourage ambulation - zofran and phenergan for nausea. Morphine prn pain - cont to await gen surg recs for adv of diet and management, apprec assistance - Pt approved for [facility] for placement once medically cleared #Anemia - B12 and folate WNL, suspect anemia of chronic disease - Stable, Hb 7.8, no s/s of acute blood loss #Hx of Ulcerative Colitis requiring total colectomy with J Pouch. - Pt does not have UC symptoms since colectomy. - currently receiving nutrition through TPN, will monitor and correct lytes as appropriate #Hx of DM II - diabetic retinopathy - Holding PO medications while NPO. - AC/HS accuchecks, SSI - increased to 40u lantus this hospitalization with BG at goal, cont to monitor #Hx of HTN - restarted home lisinopril, increased dose to 30mg daily with continued elevated BP, added HCTZ 12.5. BP still not at goal. Increased lisinopril to 40mg daily this AM. Will cont to monitor, consider adjust meds as necessary. - PRN hydralazine #Hx of breast CA - aware Code status: Full code Diet: Clears IVF: LR @ 125cc/hr DVT ppx: SCD's Dispo: Admitted to inpt for SBO. Gen surg, Dr. Ramon, consulted, appreciate recs. Patient taken to OR /. Continue TPN and LR through PICC. Clinically improving slowly, advaned to clears, await gen surg recs. Placement to [facility] bed when appropriate.
[2019-10-18 06:41] LABS: #Eosinphils 0.2 thou/uL (0.0-0.7); #Lymphocytes 1.1 thou/uL (1.20-3.40); #Monocytes 0.6 thou/uL (0.11-0.59); #Neutrophils 4.5 thou/uL (1.40-6.50); %Basophils 0.5 % (0.0-1.0); %Eosinophils 2.7 % (0.0-10.0); %Lymphocytes 17.5 % (21.0-51.0); %Monocytes 8.7 % (0.0-10.0); %Neutrophils 70.6 % (42.0-75.0); Hemoglobin 6.7 g/dL (12.0-16.0); Mean Corpuscular Hemoglobin 33.7 pg (27.0-31.0); Mean Platelet Volume 7.7 fL (7.4-10.4); Platelet Count 469 thou/uL (130-400); RBC Distribution Width 12.1 % (11.5-14.5); Red Blood Cell (RBC) Count 1.99 mill/uL (4.20-5.40); White Blood Cell (WBC) Count 6.4 thou/uL (4.8-10.8)
[2019-10-18 07:02] LABS: Anion Gap 10 mmol/L (10-20); BUN (Urea Nitrogen) 21 mg/dL (9.8-20.1); Calc. Creatinine Clearance 96 mL/min (70-130); Calcium 8.1 mg/dL (7.8-10.44); Carbon Dioxide 30 mmol/L (23-31); Chloride 104 mmol/L (98-107); Estimated GFR-MDRD 89; Glucose 63 mg/dL (83-110); Potassium 3.7 mmol/L (3.5-5.1); Sodium 140 mmol/L (136-145)
[2019-10-18] MEDS: Lisinopril 20 MG TAB PO SCH (08:42)
[2019-10-18] MEDS: Hydrochlorothiazide 25 MG TAB PO SCH (08:42)
[2019-10-18] MEDS: Famotidine 20 MG TAB PO SCH ×2 (08:43→22:10)
[2019-10-18] MEDS: Insulin Glargine 40 UNITS in Pre-Filled Syringe 1 EACH SC SCH (08:43)
[2019-10-18] MEDS: Famotidine/PF 20 mg/2ml Vial SLOW IVP SCH ×2 (08:44→22:14)
[2019-10-18] MEDS: Enoxaparin Sodium 40 MG/0.4 ML SYRINGE SC SCH (08:44)
--- NOTE | 2019-10-18 11:17 | PRG ---
DATE OF SERVICE: 10/18/2019 SUBJECTIVE: Ms. Herrera is postoperative day #13 from exploratory laparotomy, lysis of adhesions, small bowel resection per Dr. Ramon. When I saw her yesterday, she appeared to be improving. She had a very good bowel sounds. I started her on a clear liquid diet. She tells me she vomited once right after I saw her, but in the 24 hours subsequently, she has not vomited and she feels good and is tolerating her liquids well. She is ambulating and voiding uneventfully. She has had a couple of bowel movements. She feels that she has "turned the corner." OBJECTIVE: VITAL SIGNS: Temperature 97.7, pulse 83, blood pressure 133/69. LUNGS: Clear to auscultation. ABDOMEN: Soft, nontender, and nondistended with excellent normoactive bowel sounds. There is no focal tenderness to palpation. LABORATORY DATA: I checked CBC today as one had not been checked in 6 days. Her hemoglobin unexplainably has dropped from 8.7 on the 9th down to 6.7 today. Her white blood cell count is normal at 6.4 with an unremarkable differential. Her chemistry panel reveals no significant electrolyte abnormalities. ASSESSMENT AND PLAN: She is doing very well in regard to her surgery. I will advance her up to a full liquid diet today. In regard to her anemia, I will discontinue her Lovenox today and recheck her hemoglobin tomorrow. Even though she is less than 7, she does not appear to be symptomatic and I would therefore recommend observation for now rather than transfusion. Job ID: [id number]
[2019-10-18] MEDS: HumaLOG 300 UNITS/3 ML VIAL SC PRN (11:45)
[2019-10-18] MEDS ORDERED: TRACE ELEMENT IV SCH (14:00)
[2019-10-18] MEDS ORDERED: MULTIVITAMINS IV SCH (14:00)
[2019-10-18] MEDS ORDERED: [UNRECOGNIZED DRUG - OTHER] IV SCH (14:00)
[2019-10-18] MEDS: Gabapentin 300 MG CAP PO SCH (22:09)
[2019-10-19] MEDS: Ondansetron PF 4 MG/2 ML Vial IVP PRN ×2 (01:12→13:07)
[2019-10-19] MEDS: Acetaminophen 500 MG TAB PO SCH ×4 (04:36→21:21)
[2019-10-19] MEDS: traMADol HCl 50 MG TAB PO SCH ×4 (04:37→21:21)
--- NOTE | 2019-10-19 05:17 | PRG ---
DATE OF SERVICE: 10/18/2019 The good news is, has not vomited in over 24 hours, was able to get a little bit of p.o. fluids in, having a bowel movement and generally speaking seems to be going in the right direction for this 74-year-old with day of hospitalization 14 after a small bowel obstruction and surgery for that. The patient was seen, evaluated, discussed and examined with the residents by bedside and agree with the note from Dr. Andrés Beebe for further documentation. Job ID: [id number]
[2019-10-19 05:38] LABS: #Eosinphils 0.1 thou/uL (0.0-0.7); #Lymphocytes 1.1 thou/uL (1.20-3.40); #Monocytes 0.6 thou/uL (0.11-0.59); #Neutrophils 3.3 thou/uL (1.40-6.50); %Basophils 0.7 % (0.0-1.0); %Eosinophils 2.6 % (0.0-10.0); %Lymphocytes 20.9 % (21.0-51.0); %Monocytes 10.8 % (0.0-10.0); Hemoglobin 6.4 g/dL (12.0-16.0); Mean Corpuscular HGB CONC 32.8 g/dL (32.0-36.0); Mean Corpuscular Hemoglobin 33.3 pg (27.0-31.0); Mean Platelet Volume 7.4 fL (7.4-10.4); Platelet Count 484 thou/uL (130-400); RBC Distribution Width 12.4 % (11.5-14.5); Red Blood Cell (RBC) Count 1.91 mill/uL (4.20-5.40); White Blood Cell (WBC) Count 5.1 thou/uL (4.8-10.8)
--- NOTE | 2019-10-19 06:12 | PDOC.FM ---
- Subjective Subjective: Doing very well this morning, no acute events overnight. States continues to have multiple small BM, passing flatus, tolerating full liquid diet and eager to advance. 1 episode of nausea however no vomiting. Ambulating well. Pain well- controlled. No dizziness/lightheadedness, fever/chills, Cp, SOB. - Objective MAR Reviewed: Yes Vital Signs & Weight: Vital Signs (12 hours) Temp Pulse Resp BP BP BP Pulse Ox 10/19/19 04:11 98.0 F 90 16 146/71 H 96 10/18/19 23:50 86 174/74 H 10/18/19 23:24 98.5 F 86 16 174/74 H 99 10/18/19 20:06 98.3 F 85 16 165/79 H 99 Weight Admit Weight 79.832 kg Weight 80.24 kg I&O: 10/17/19 10/18/19 10/19/19 06:59 06:59 06:59 Intake Total 2725 2658 2658 Output Total 1100 Balance 1625 2658 2658 Result Diagrams: 10/19/19 05:30 10/18/19 03:30 Phys Exam - Physical Examination Constitutional: NAD (in very good spirits, resting comfortably) HEENT: moist MMs Neck: supple Respiratory: no wheezing, no rales, no rhonchi, clear to auscultation bilateral Cardiovascular: RRR, no rub 4/6 QUE Gastrointestinal: soft, non-tender, no distention, positive bowel sounds ( hypoactive this AM) incision with woundvac c/d/i Musculoskeletal: no edema Neurological: moves all 4 limbs Psychiatric: normal affect, A&O x 3 Dx/Plan (1) SBO (small bowel obstruction) Code(s): K56.609 - UNSP INTESTNL OBST, UNSP TO PARTIAL VERSUS COMPLETE OBST Status: Acute (2) DM II (diabetes mellitus, type II), controlled Code(s): E11.9 - TYPE 2 DIABETES MELLITUS WITHOUT COMPLICATIONS Status: Chronic (3) HTN (hypertension) Code(s): I10 - ESSENTIAL (PRIMARY) HYPERTENSION Status: Chronic - Plan Plan: 74 y/o F with a pmhx of DM2, HTN, multiple abdominal surg admitted for SBO now s /p exlap. #SBO, POD #14 with prolonged ileus, improving - Hx of hysterectomy, cholcystectomy and colectomy with J pouch. Previous SBO x5 usually relieved with SB follow through - Small bowel follow through 10/04: mild-moderate obstruction, patient taken to OR 10/04. - Gen surgery, Dr. Ramon consulted from ED, apprec recs and assistance - s/p Levaquin and flagyl, nova removed 10/08, ng tube removed 10/07 but replaced on 10/11 and removed 10/13 - Unable to tolerated initial advancement of diet and back to bowel rest on 10/11. - Over past 24-48hrs has improved with flatus, BM, no vomiting, mild nausea, and tolerating full liquid diet - KUB - improved, some air/fluid levels with borderline bowel size - Patient has PICC line, IVF d/c'ed and TPN turned down - will cont to wean per surg recs - Continue working with PT/OT, encourage ambulation - zofran and phenergan for nausea. Morphine prn pain - cont to await gen surg recs for adv of diet and management, apprec assistance - Pt approved for [facility] for placement once medically cleared #Anemia - B12 and folate WNL, suspect anemia of chronic disease - Hb 7.8 -> 6.7 -> 6.4, suspect 2/2 op blood loss - anticipate transfusion 1u pRBC this AM with cont monitoring #Hx of Ulcerative Colitis requiring total colectomy with J Pouch. - Pt does not have UC symptoms since colectomy. - currently receiving nutrition through TPN, will monitor and correct lytes as appropriate #Hx of DM II - diabetic retinopathy - Holding PO medications while NPO. - AC/HS accuchecks, SSI - increased to 40u lantus this hospitalization, BG on lower normal with episode of hypoglycemia, likely 2/2 decreased TPN. Will decrease to 36u this AM and monitor closely #Hx of HTN - restarted home lisinopril, increased dose to 40mg daily with continued elevated BP, increased HCTZ to 25mg daily this AM. Will cont to monitor, consider adjust meds as necessary. - PRN hydralazine #Hx of breast CA - aware Code status: Full code Diet: Full Liquid IVF: SL DVT ppx: SCD's Dispo: Admitted to in for SBO. Gen surg, Dr. Ramon, consulted, appreciate recs. Patient taken to OR 3/. Continue to wean TPN. Clinically improving, advaned to full liquid, await gen surg recs. [facility]. Addendum - Attending - Attending Attestation Date/Time: 10/19/19 [id number] I personally evaluated the patient and discussed the management with Dr. Beebe. I agree with the History, Examination, Assessment and Plan documented above with any addition or exceptions noted below.
[2019-10-19] MEDS: Hydrochlorothiazide 25 MG TAB PO SCH (08:53)
[2019-10-19] MEDS: Famotidine 20 MG TAB PO SCH ×2 (08:54→21:21)
[2019-10-19] MEDS: Lisinopril 20 MG TAB PO SCH (08:54)
[2019-10-19] MEDS: Famotidine/PF 20 mg/2ml Vial SLOW IVP SCH (08:55)
[2019-10-19] MEDS: Venlafaxine HCl XR 75 MG CAP PO SCH (08:55)
[2019-10-19] MEDS ORDERED: PRE FILLED SC SCH (09:00)
[2019-10-19] MEDS ORDERED: INSULIN GLARGINE SC SCH (09:00)
[2019-10-19] MEDS ORDERED: Insulin Glargine 36 UNITS in Pre-Filled Syringe 1 EACH SC SCH (09:00)
--- NOTE | 2019-10-19 09:05 | PRG ---
DATE OF SERVICE: 10/19/2019 SUBJECTIVE: The patient is doing well. She is tolerating full liquids. Bowels are functioning well. Pain is non-existent. No nausea or vomiting. OBJECTIVE: VITAL SIGNS: On exam, temperature 98.2, pulse 94, and blood pressure 147/73. ASSESSMENT: Doing well. PLAN: Wean TPN. Soft mechanical diet. Job ID: [id number]
[2019-10-19 14:13] LABS: Hemoglobin 7.6 g/dL (12.0-16.0)
[2019-10-19] MEDS: Gabapentin 300 MG CAP PO SCH (21:20)
[2019-10-20] MEDS: traMADol HCl 50 MG TAB PO PRN ×2 (01:53→14:42)
[2019-10-20] MEDS: traMADol HCl 50 MG TAB PO SCH ×2 (04:35→09:25)
[2019-10-20] MEDS: Acetaminophen 500 MG TAB PO SCH ×4 (04:35→20:43)
[2019-10-20 05:03] LABS: #Eosinphils 0.1 thou/uL (0.0-0.7); #Lymphocytes 1.1 thou/uL (1.20-3.40); #Monocytes 0.8 thou/uL (0.11-0.59); #Neutrophils 3.7 thou/uL (1.40-6.50); %Basophils 0.7 % (0.0-1.0); %Eosinophils 1.3 % (0.0-10.0); %Lymphocytes 19.3 % (21.0-51.0); %Monocytes 14.3 % (0.0-10.0); %Neutrophils 64.3 % (42.0-75.0); Hemoglobin 7.4 g/dL (12.0-16.0); Mean Corpuscular HGB CONC 32.4 g/dL (32.0-36.0); Mean Platelet Volume 7.2 fL (7.4-10.4); Platelet Count 481 thou/uL (130-400); RBC Distribution Width 15.6 % (11.5-14.5); Red Blood Cell (RBC) Count 2.32 mill/uL (4.20-5.40); White Blood Cell (WBC) Count 5.8 thou/uL (4.8-10.8)
[2019-10-20 05:14] LABS: Anion Gap 11 mmol/L (10-20); BUN (Urea Nitrogen) 19 mg/dL (9.8-20.1); Calc. Creatinine Clearance 89 mL/min (70-130); Calcium 7.7 mg/dL (7.8-10.44); Carbon Dioxide 29 mmol/L (23-31); Chloride 103 mmol/L (98-107); Estimated GFR-MDRD 82; Potassium 3.4 mmol/L (3.5-5.1); Sodium 140 mmol/L (136-145)
[2019-10-20 05:22] LABS: Glucose 32 mg/dL (83-110)
[2019-10-20] MEDS ORDERED: Potassium Chloride 20 MEQ TAB PO SCH (05:45)
--- NOTE | 2019-10-20 06:04 | PDOC.FM ---
- Subjective Subjective: Doing well this morning, in good spirits. Episode of hypoglycemia this morning, became nauseated, diaphoresis. Responded to PO intake. Off TPN. Tolerating PO well without n/v. Passing flatus and multiple small BM. Voiding well. Pain well- controlled. Ambulating frequently. Eager for discharge to [facility]. - Objective MAR Reviewed: Yes Vital Signs & Weight: Vital Signs (12 hours) Temp Pulse Resp BP Pulse Ox 10/20/19 04:09 97.7 F 86 16 121/61 96 10/19/19 23:55 98.2 F 76 16 144/69 H 95 10/19/19 19:48 98.1 F 86 16 144/76 H 96 Weight Admit Weight 79.832 kg Weight 80.24 kg I&O: 10/18/19 10/19/19 10/20/19 06:59 06:59 06:59 Intake Total 2658 3258 0 Balance 2658 3258 0 Result Diagrams: 10/20/19 04:35 10/20/19 04:35 Phys Exam - Physical Examination Constitutional: NAD (resting comfortably, eating snack, good spirits) HEENT: moist MMs Neck: supple Respiratory: no wheezing, no rales, no rhonchi, clear to auscultation bilateral Cardiovascular: RRR, no rub 4/6 QUE Gastrointestinal: soft, non-tender, no distention, positive bowel sounds mid-line incision c/d/i, wound vac in place Musculoskeletal: no edema Neurological: moves all 4 limbs Psychiatric: normal affect, A&O x 3 Dx/Plan (1) SBO (small bowel obstruction) Code(s): K56.609 - UNSP INTESTNL OBST, UNSP TO PARTIAL VERSUS COMPLETE OBST Status: Acute (2) DM II (diabetes mellitus, type II), controlled Code(s): E11.9 - TYPE 2 DIABETES MELLITUS WITHOUT COMPLICATIONS Status: Chronic (3) HTN (hypertension) Code(s): I10 - ESSENTIAL (PRIMARY) HYPERTENSION Status: Chronic - Plan Plan: 74 y/o F with a pmhx of DM2, HTN, multiple abdominal surg admitted for SBO now s /p exlap. #SBO, POD #15 with prolonged ileus, improving - Hx of hysterectomy, cholcystectomy and colectomy with J pouch. Previous SBO x5 usually relieved with SB follow through - Small bowel follow through 10/04: mild-moderate obstruction, patient taken to OR 10/04. - Gen surgery, Dr. Ramon consulted from ED, apprec recs and assistance - s/p Levaquin and flagyl, nova removed 10/08, ng tube removed 10/07 but replaced on 10/11 and removed 10/13 - Unable to tolerated initial advancement of diet and back to bowel rest on 10/11. - Over past 2-3d has improved with flatus, BM, no vomiting, mild nausea, and tolerating mech soft diet, off TPN and IVF - Patient has PICC line- IVF and TPN off - Continue working with PT/OT, encourage ambulation - zofran and phenergan for nausea. - Medically cleared for discharge, awaiting Pt approval for [facility] #Anemia, acute post-op on chronic disease - B12 and folate WNL, suspect anemia of chronic disease - Hb 7.8 -> 6.7 -> 6.4 -> 7.4 s/p 1u pRBC #Hx of Ulcerative Colitis requiring total colectomy with J Pouch. - Pt does not have UC symptoms since colectomy. - currently receiving nutrition through TPN, will monitor and correct lytes as appropriate #Hx of DM II - diabetic retinopathy. Sx Hypoglycemia episode this AM now that off TPN. Will decrease Lantus back to home dose of 20u and monitor closely - Holding PO medications while NPO. - AC/HS accuchecks, SSI #Hx of HTN - restarted home lisinopril, increased dose to 40mg daily with continued elevated BP, increased HCTZ to 25mg daily. BP now at goal. Will cont to monitor , consider adjust meds as necessary. - PRN hydralazine #Hx of breast CA - aware Code status: Full code Diet: Mech Soft IVF: SL DVT ppx: SCD's Dispo: Admitted to inpt for SBO. Gen surg, Dr. Ramon, consulted, appreciate recs. Patient taken to OR 10/04. Off TPN. Clinically improving, advanced to mech soft diet. Adjusting insulin regime. Placement to [facility] [place] when approved. Addendum - Attending - Attending Attestation Date/Time: 10/20/19 1100 I personally evaluated the patient and discussed the management with Dr. Beebe. I agree with the History, Examination, Assessment and Plan documented above with any addition or exceptions noted below.
[2019-10-20] MEDS ORDERED: Insulin Glargine 30 UNITS in Pre-Filled Syringe 1 EACH SC SCH (09:00)
[2019-10-20] MEDS ORDERED: Insulin Glargine 20 UNITS in Pre-Filled Syringe 1 EACH SC SCH (09:00)
[2019-10-20] MEDS: Hydrochlorothiazide 25 MG TAB PO SCH (09:23)
[2019-10-20] MEDS: Venlafaxine HCl XR 75 MG CAP PO SCH (09:23)
[2019-10-20] MEDS: Lisinopril 20 MG TAB PO SCH (09:24)
[2019-10-20] MEDS: Famotidine 20 MG TAB PO SCH ×2 (09:25→20:43)
[2019-10-20] MEDS ORDERED: traMADol HCl 50 MG TAB PO PRN (13:24)
--- NOTE | 2019-10-20 13:52 | PRG ---
DATE OF SERVICE: 10/20/2019 SUBJECTIVE: The patient states she feels a lot better. She is tolerating soft foods. Bowels are working. Pain is minimal. No nausea or vomiting. OBJECTIVE: VITAL SIGNS: Temperature is 98.1, pulse 82, blood pressure 146/75. GENERAL: She looks good. ABDOMEN: Soft, nondistended. The incision is healing well. There is no evidence of infection. LABORATORY DATA: Her white count 5.8, hemoglobin and hematocrit 7.4 and 22.9, platelet count 481. ASSESSMENT: Doing well. PLAN: The plan is to renew her tramadol. Still waiting for approval to transfer to the halfway. Job ID: [id number]
[2019-10-20] MEDS: Dextrose 50% Abboject 50 ML SYRINGE SLOW IVP PRN (17:15)
[2019-10-20] MEDS: Gabapentin 300 MG CAP PO SCH (20:43)
[2019-10-21] MEDS: Dextrose 50% Abboject 50 ML SYRINGE SLOW IVP PRN (00:06)
[2019-10-21] MEDS: Acetaminophen 500 MG TAB PO SCH ×2 (05:41→10:59)
--- NOTE | 2019-10-21 06:30 | PDOC.FM ---
- Subjective Subjective: Doing well this morning, in good spirits. Eager for discharge to swing bed if approved by insurance. Working with PT, able to walk but has to take many breaks per pt and gets winded easily. Still with episodes of hypoglycemia overnight, symptomatic. No fever/chills, CP. Abd pain well-controlled. Tolerating PO well without n/v. Passing flatus and multiple BM. - Objective MAR Reviewed: Yes Vital Signs & Weight: Vital Signs (12 hours) Temp Pulse Resp BP Pulse Ox 10/21/19 03:11 98.2 F 85 16 159/78 H 98 10/20/19 23:58 98.4 F 92 16 147/74 H 96 10/20/19 19:40 98.1 F 83 16 147/69 H 97 Weight Admit Weight 79.832 kg Weight 80.24 kg I&O: 10/19/19 10/20/19 10/21/19 06:59 06:59 06:59 Intake Total 3258 0 1320 Balance 3258 0 1320 Result Diagrams: 10/20/19 04:35 10/20/19 04:35 Phys Exam - Physical Examination Constitutional: NAD (resting comfortably, good spirits, tired-appearing this AM) HEENT: moist MMs Neck: supple Respiratory: no wheezing, no rales, no rhonchi, clear to auscultation bilateral Cardiovascular: RRR, no rub 4/6 QUE Gastrointestinal: soft, no distention, positive bowel sounds midline incision with wound vac, c/d/i Musculoskeletal: no edema Neurological: moves all 4 limbs Psychiatric: normal affect, A&O x 3 Dx/Plan (1) SBO (small bowel obstruction) Code(s): K56.609 - UNSP INTESTNL OBST, UNSP TO PARTIAL VERSUS COMPLETE OBST Status: Acute (2) DM II (diabetes mellitus, type II), controlled Code(s): E11.9 - TYPE 2 DIABETES MELLITUS WITHOUT COMPLICATIONS Status: Chronic (3) HTN (hypertension) Code(s): I10 - ESSENTIAL (PRIMARY) HYPERTENSION Status: Chronic - Plan Plan: 74 y/o F with a pmhx of DM2, HTN, multiple abdominal surg admitted for SBO now s /p exlap. #SBO, POD #16 with prolonged ileus, improving - Hx of hysterectomy, cholcystectomy and colectomy with J pouch. Previous SBO x5 usually relieved with SB follow through - Small bowel follow through 10/04: mild-moderate obstruction, patient taken to OR 10/04. - Gen surgery, Dr. Ramon consulted from ED, apprec recs and assistance - s/p Levaquin and flagyl, nova removed 10/08, ng tube removed 10/07 but replaced on 10/11 and removed 10/13 - Unable to tolerated initial advancement of diet and back to bowel rest on 10/11. Initially with PICC and IVF and TPN. - Over past 3-4d has improved with flatus, BM, no vomiting, mild nausea, and tolerating mech soft diet, off TPN and IVF - Continue working with PT/OT, encourage ambulation. Able to tolerate but winded easily. - zofran and phenergan for nausea. - Medically cleared for discharge, awaiting ins approval for [facility] #Anemia, acute post-op on chronic disease - B12 and folate WNL, suspect anemia of chronic disease - Hb 7.8 -> 6.7 -> 6.4 -> 7.4 s/p 1u pRBC #Hx of Ulcerative Colitis requiring total colectomy with J Pouch. - Pt does not have UC symptoms since colectomy. - currently receiving nutrition through TPN, will monitor and correct lytes as appropriate #Hx of DM II - diabetic retinopathy. Sx Hypoglycemia episode this AM now that off TPN. Lantus decreased back to 20u, still with hypoglycemia, will decrease lantus again this AM and monitoring closely. - AC/HS accuchecks, SSI #Hx of HTN - restarted home lisinopril, increased dose to 40mg daily with continued elevated BP, increased HCTZ to 25mg daily. BP now at goal. Will cont to monitor , consider adjust meds as necessary. - PRN hydralazine #Hx of breast CA - aware Code status: Full code Diet: Mech Soft IVF: SL DVT ppx: SCD's Dispo: Admitted to inpt for SBO. Gen surg, Dr. Ramon, consulted, appreciate recs. Patient taken to OR 10/04. Off TPN. Clinically improving, advanced to mech soft diet. Adjusting insulin regime. Placement to [facility] when approved. Addendum - Attending - Attending Attestation Date/Time: 10/21/19 1123 I personally evaluated the patient and discussed the management with Dr. Beebe. I agree with the History, Examination, Assessment and Plan documented above with any addition or exceptions noted below.
[2019-10-21] MEDS ORDERED: Insulin Glargine 16 UNITS in Pre-Filled Syringe 1 EACH SC SCH (09:00)
[2019-10-21] MEDS: Venlafaxine HCl XR 75 MG CAP PO SCH (09:30)
[2019-10-21] MEDS: Hydrochlorothiazide 25 MG TAB PO SCH (09:30)
[2019-10-21] MEDS: traMADol HCl 50 MG TAB PO PRN (09:31)
[2019-10-21] MEDS: Lisinopril 20 MG TAB PO SCH (09:31)
[2019-10-21] MEDS: Famotidine 20 MG TAB PO SCH (09:31)
--- NOTE | 2019-10-21 09:31 | PRG ---
DATE OF SERVICE: 10/21/2019 SUBJECTIVE: The patient is doing well except her blood sugar keeps dropping. She is still getting insulin. Her bowels are working. She is tolerating a soft diet. OBJECTIVE: GENERAL: On examination, she looks good. Her wound is healing well. ABDOMEN: Soft and nondistended. Incision looks good. LABORATORY DATA: White count is 5.8, H and H are fine. The blood sugar has never been higher than 138, it has been as low as 38. PLAN: Stop all insulin because I have been having to force feed her ice cream just to maintain her blood sugar. She is off the TPN. There is no need for the insulin at this point. Hopefully, she can go to home health soon or to the residential waiting on insurance approval. Job ID: [id number]
[2019-10-21 11:37] VITALS: BP 160/90; TEMP 98.4
--- NOTE | 2019-10-22 13:39 | DIS ---
DATE OF ADMISSION: 10/04/2019 DATE OF DISCHARGE: 10/21/2019 RESIDENT: Andrés Beebe MD. ADMITTING ATTENDING: Juve Smith MD. DISCHARGE ATTENDING: Kar Shaikh MD CONSULTS: 1. General Surgery, Dr. Andrea Ramon. 2. Interventional Radiology, Dr. Denys Rodriguez. PROCEDURES PERFORMED: 1. PICC line placement on 10/06/2019. 2. Abdominal and pelvis CT performed on 10/04/2019, demonstrating fluid-filled dilated loops of small bowel involving the proximal and mid small bowel with distal small bowel loops decompressed. Findings indicative of a relatively high-grade small bowel obstruction. 3. Chest x-ray on 10/04/2019, demonstrating NG tube placement. Lungs appeared clear without infiltrate. 4. Small-bowel follow-through on 10/05/2019, demonstrating high-grade obstruction secondary to a focally dilated loop of small bowel with extensive focal fecalization. 5. Exploratory laparotomy with extensive lysis of adhesions, repair of enterotomies, and partial small bowel resection on 10/05/2019, by Dr. Andrea Ramon. 6. Right upper extremity Doppler ultrasound with no occlusion of the right subclavian vein. 7. Chest x-ray on 10/12/2019, demonstrating a right-sided PICC line and gastric catheter placement into the gastric body. 8. Abdominal x-ray on 10/13/2019, demonstrating an improved appearance from prior study except the postoperative changes and some persistent air-fluid levels and borderline-sized small bowel. 9. Transfusion of 1 unit of packed red blood cells on 10/19/2019. 10. NG tube placement on 10/08/2019, removed on 10/11/2019, replaced on 10/12/2019, and finally removed on 10/14/2019. 11. Mendez catheter placement on 10/05/2019, removed on 10/09/2019. PRIMARY DIAGNOSES: 1. Small bowel obstruction, status post exploratory laparotomy and adhesiolysis with prolonged ileus. 2. Anemia, acute postoperatively, superimposed on anemia of chronic disease. SECONDARY DIAGNOSES: 1. History of ulcerative colitis requiring total colectomy with J-pouch. 2. Insulin-dependent type 2 diabetic. 3. Hypertension. 4. History of breast cancer. DISCHARGE MEDICATIONS: 1. Pristiq 50 mg p.o. daily. 2. Anastrozole 1 mg p.o. daily. 3. Metformin 1000 mg p.o. daily. 4. Insulin 20 units subcutaneously at bedtime to titrate as appropriate. 5. Gabapentin 300 mg p.o. at bedtime. 6. Acitretin 10 mg p.o. daily. 7. Pioglitazone 45 mg p.o. daily. 8. Flovent Diskus 50 mcg 2 sprays nightly. 9. Hydrochlorothiazide 25 mg p.o. daily. 10. Lisinopril 40 mg p.o. daily. DISCONTINUED MEDICATIONS: 1. Lisinopril 10 mg p.o. daily. 2. Naproxen 500 mg p.o. b.i.d. HISTORY OF PRESENT ILLNESS AND HOSPITAL COURSE: The patient is a very pleasant 74-year-old female with past medical history of multiple abdominal surgeries, ulcerative colitis, hypertension, and diabetes, presented to the ED with abdominal pain and bloating. She states that this presentation is very similar to her previous 5 small bowel obstructions. She said that she performed a Fleet Enema on herself, which did not alleviate any bloating. She states the pain was left lower quadrant in nature. She denied any dysuria or hematuria. Imaging was obtained in the emergency department, that demonstrated small bowel obstruction, and thus, General Surgery was consulted, who recommended placement of NG tube, IV fluids, and n.p.o. status. She was given normal saline and morphine for pain and admitted to the floor for further evaluation and management. Small-bowel follow-through demonstrated the high-grade small bowel obstruction. The patient was taken to the OR on 10/04, for exploratory laparotomy with lysis of adhesions per above. The patient tolerated the procedure well. The patient was initially given a course of Levaquin and Flagyl and completed the course. The patient was then transferred to the floor in stable condition. The patient had routine postoperative care. She was initially n.p.o. with NG tube placed and continued on IV fluids. Ultimately, the patient was started on a PICC line for TPN during her hospitalization. The patient ultimately developed a prolonged ileus requiring replacement of the NG tube and deescalation of diet on 10/12/2019. She was continued on IV fluids and TPN for nutrition. Over the next few days, the patient had very slow, but progressive improvement, eventually passing gas and having very small bowel movements. Her nausea was initially quite severe requiring scheduled nausea medications with episodes of bilious vomiting. This slowly did begin to improve. The patient continued to work with Physical Therapy during this time as well. Pain control was initially controlled with a [employer] pump, eventually transitioned to IV pain medications and ultimately transitioned to p.o. medications. At the time of discharge, the patient's bowel function appeared to have returned to near normal. She was passing stools, tolerating a mechanical soft diet, was off TPN and IV fluids, having no nausea or vomiting, ambulating well, and pain very well controlled. The patient does have an anemia of chronic disease. Postoperatively, her hemoglobin was trended and did drop down to 6.4. She was given a transfusion of 1 unit of packed red blood cells with an increase to 7.4, asymptomatic, and will need continued monitoring this as an outpatient. The patient also has a history of ulcerative colitis, type 2 diabetes, hypertension, and breast cancer. Regarding the patient's type 2 diabetes, her insulin regimen had to be increased due to her TPN and ultimately was titrated up to 40 units of Lantus daily. After coming off TPN, the patient did experience a few hypoglycemic episodes and corrected with p.o. intake. Ultimately, her Lantus was discontinued to restart and titrate appropriately at the [facility] in [place], where she will continue to obtain therapy and residential care. The patient also has a history of hypertension and was noted to be hypertensive through most of her hospitalization, and her medications were titrated up appropriately. At the time of discharge, the patient was titrated up to lisinopril 40 mg daily with hydrochlorothiazide 25 mg daily with blood pressure at goal. She will continue this upon discharge and will need close outpatient followup. At the time of discharge, the patient was doing very well and is eager to continue working with Physical Therapy. Again, she was passing gas and bowel movements, tolerating p.o. well. Her wound had a wound VAC on place and was healing very nicely. No signs of infection. Her vital signs were stable. Discharge plan was discussed with the patient and at bedside, who voiced agreement and understanding, and all questions were answered appropriately. The patient was discharged to [facility] for continued managing of her hypertension and insulin regimen as well as continued physical and occupational therapy with wound care to provide a safe discharge ultimately to home. DISPOSITION: Stable. DISCHARGE INSTRUCTIONS: 1. Location: [facility]. 2. Diet: Consistent carb mechanical soft as tolerated. 3. Activity: As tolerated. 4. Followup: The patient will need to follow up with her surgeon within 1 to 2 weeks as directed. The patient will need to follow up with primary care provider, Dr. Castillo within 1 week of discharge. Job ID: [id number]
== END 2019-10-21 14:00 | DRG 330 ==
LOC: ERS 01:14 → SURG A 03:08
PROVIDERS: ADMIT Family Medicine; ATTEND Family Medicine
PROC: 0DB80ZZ Excision of Small Intestine, Open Approach (ICD-10-PCS; 2019-10-05)
PROC: 0DN80ZZ Release Small Intestine, Open Approach (ICD-10-PCS; 2019-10-05)
PROC: 02HV33Z Insertion of Infusion Device into Superior Vena Cava, Percutaneous Approach (ICD-10-PCS; principal; 2019-10-06)
PROC: B548ZZA Ultrasonography of Superior Vena Cava, Guidance (ICD-10-PCS; 2019-10-06)
PROC: 30233N1 Transfusion of Nonautologous Red Blood Cells into Peripheral Vein, Percutaneous Approach (ICD-10-PCS; 2019-10-19)
DX: K56.609 Unspecified intestinal obstruction, unspecified as to partial versus complete obstruction (principal); K91.89 Other postprocedural complications and disorders of digestive system; I10 Essential (primary) hypertension; E11.319 Type 2 diabetes mellitus with unspecified diabetic retinopathy without macular edema; E83.39 Other disorders of phosphorus metabolism; K56.7 Ileus, unspecified; D63.8 Anemia in other chronic diseases classified elsewhere; E87.6 Hypokalemia; Z85.3 Personal history of malignant neoplasm of breast; Z90.710 Acquired absence of both cervix and uterus; Z90.49 Acquired absence of other specified parts of digestive tract; Z88.0 Allergy status to penicillin
CPT/HCPCS: 36415; 36416; 36430; 36569; 71045; 74018; 74177; 74250; 80048; 80053; 80061; 81003; 81015; 82607; 82746; 83690; 83735; 84100; 84134; 85025; 85060; 85610; 85730; 86850; 86900; 86901; 88307; 94760; 96361; 96374; 96375; C1751; J0360; J1200; J1644; J1650; J1815; J1885; J1956; J2270; J2405; J2550; J2704; J2765; J3010; J3475; J3480; J3490; J7050; P9016; P9047; Q9963; Q9967; S0028

== ENCOUNTER → 2021-04-11 | Day surgery (SDC) | payer MEDICARE | LOC: BICULT 12:15 | PROVIDERS: ATTEND Internal Medicine Hematology & Oncology | PROC: 0H9U3ZX Drainage of Left Breast, Percutaneous Approach, Diagnostic (ICD-10-PCS; principal; 2021-04-11) | DX: N60.32 Fibrosclerosis of left breast (principal); Z85.3 Personal history of malignant neoplasm of breast; Z88.0 Allergy status to penicillin; Z88.5 Allergy status to narcotic agent | CPT/HCPCS: 19083; 88305; 88341; 88342 ==